=== PATIENT | female | born 1980 | race Caucasian/White ===

== ENCOUNTER 2016-11-18 10:11 | Inpatient (IN) ==
[2016-11-18] MEDS ORDERED: 0.9 % Sodium Chloride 1,000 ML IVC ONE (10:32)
[2016-11-18] MEDS ORDERED: *HR* Promethazine 25 MG/ML VIAL IVP ONE ×2 (10:33→14:31)
--- NOTE | 2016-11-18 10:34 | Emergency Department Note ---
Disposition Clinical Impression: Intractable vomiting Qualifiers: Vomiting type: unspecified Nausea presence: with nausea Qualified Code(s): R11.2 - Nausea with vomiting, unspecified Abdominal pain Qualifiers: Abdominal location: generalized Qualified Code(s): R10.84 - Generalized abdominal pain Disposition: Admitted As Inpatient Condition: Good Referrals: Reji Lockhart MD [Primary Care Provider] - Forms: Work/School Release, ED Satisfaction Letter Abdominal Pain HPI - General Chief Complaint: ED Abdominal Pain Stated Complaint: abd pain Time Seen by Provider: 11/18/16 10:20 Source: patient Mode of arrival: ambulatory Limitations: no limitations Nursing Notes Reviewed: Yes Vital Signs Reviewed: Yes - History of Present Illness Pt Subjective Complaint: abdominal pain Onset (ago): day(s) (2) Consistency: constant Location: diffuse Pain Scale: 7 Quality: cramping Improves with: nothing Worsens with: nothing Context: other (chemotherapy) Associated symptoms: Reports: nausea, vomiting Treatments prior to arrival: prescription analgesics - Related Data Home Medications Medication Instructions Recorded Confirmed Gabapentin [Neurontin] 300 mg PO TID PRN 06/17/16 11/18/16 LORazepam [Ativan] 0.5 mg PO TID PRN 09/23/16 11/18/16 Previous Rx's Medication Instructions Recorded Esomeprazole Magnesium [Nexium] 40 mg PO DAILY #30 capsule. 12/16/15 Ondansetron [Zofran] 8 mg PO Q8HR PRN #60 tablet 06/17/16 Promethazine [Phenergan] 25 mg PO Q6HR PRN #60 tablet 06/17/16 Sennosides/Docusate Sodium [Senna 1 each PO BID PRN #60 tablet 07/16/16 Plus] Haloperidol [Haldol] 5 mg PO HS PRN #30 tablet 08/06/16 Everolimus [Afinitor] 5 mg PO DAILY #30 tablet 09/28/16 Exemestane [Aromasin] 25 mg PO DAILY #30 tablet 09/28/16 Lidocaine/Prilocaine CREAM [Emla] 1 appl TP AD #1 tube 09/28/16 Sorbitol Soln [Sorbitol] 15 - 30 ml PO DAILY PRN #1 solution 09/28/16 Sucralfate [Carafate] 1 gm PO QIDAC #120 tablet 09/28/16 OLANZapine [Zyprexa Zydis] 10 mg PO HS #20 tab.rapdis 10/22/16 FentaNYL PATCH [Duragesic] 50 mcg TD Q72H #10 patch.td72 10/27/16 Magic Mouthwash 10 ml PO TID #900 ml 10/27/16 Oxycodone HCl [Roxicodone 30 MG 30 mg PO Q4HR PRN #150 tab 10/27/16 Immed Release] SUMAtriptan Succinate [Imitrex] 100 mg PO AD PRN #12 tablet 10/27/16 Zolpidem [Ambien] 10 mg PO HS PRN #30 tablet 11/03/16 Allergies Allergy/AdvReac Type Severity Reaction Status Date / Time metoclopramide [From Reglan] Allergy See Verified 10/27/16 10:23 Comments All systems ED: reviewed and negative except as stated. Constitutional: Reports: weakness. Denies: fever, chills Respiratory: Denies: dyspnea Gastrointestinal: Reports: abdominal pain, nausea, vomiting Abdominal Pain PMH - Past Medical History Medical history: Reports: cancer, kidney stones Female Surgical History: Reports: cholecystectomy, hysterectomy, other TECHNICAL SUPPORT SPECIALIST history: Reports: no TECHNICAL SUPPORT SPECIALIST history Psychiatric history: Reports: no psych history - Social History Smoking status: Former smoker Alcohol use: Reports: none Drug use: Reports: none Physical Exam - General Limitations: no limitations General appearance: alert, other (ill but non toxic) - Head Head exam: atraumatic, normocephalic, normal inspection - Eye Eye exam: Present: normal appearance, PERRL, EOMI - Expanded Eye Exam Pupils: Left: reactive - ENT ENT exam: normal exam, normal oropharynx, mucous membranes moist - Expanded ENT Exam External ear exam: Present: normal external inspection Mouth exam: Present: normal external inspection Teeth exam: Present: normal inspection Throat exam: Present: normal inspection - Neck Neck exam: Present: normal inspection, full ROM, trachea midline - Chest Chest inspection: Present: normal inspection, symmetric chest wall rise - Respiratory Respiratory exam: Present: normal lung sounds bilaterally - Cardiovascular Cardiovascular exam: Present: regular rate, normal rhythm, normal heart sounds - Abdominal Exam Abdominal exam: Present: soft, tenderness. Absent: guarding, rebound Abdominal tenderness: Present: diffuse, mild - Extremities Exam Extremities exam: Present: normal inspection, full ROM. Absent: tenderness, pedal edema - Expanded Upper Extremity Exam Shoulder exam: Present: normal inspection, full ROM Arm exam: Present: normal inspection, full ROM Elbow exam: Present: normal inspection, full ROM Forearm/Wrist exam: Present: normal inspection, full ROM Hand exam: Present: normal inspection, full ROM Vascular exam: Normal: capillary refill, radial pulse - Expanded Lower Extremity Exam Hip/Pelvis exam: Present: normal inspection, full ROM Upper leg exam: Present: normal inspection, full ROM Knee exam: Present: normal inspection, full ROM Lower leg exam: Present: normal inspection, full ROM Ankle exam: Present: normal inspection, full ROM Foot/toe exam: Present: normal inspection, full ROM Neurovascular/Tendon exam: Absent: motor deficit, sensory deficit, tendon deficit - Back Exam Back exam: Present: normal inspection, full ROM. Absent: tenderness - Neurological Exam Neurological exam: Present: alert, oriented X3 - Expanded Neurological Exam Patient oriented to: Present: person, place, time Coma Scale Eye Opening: Spontaneous Coma Scale Motor Response: Obeys Commands Coma Scale Verbal Response: Oriented Coma Scale Total: 15 - Psychiatric Psychiatric exam: Present: normal affect, normal mood - Skin Skin exam: Present: warm, dry, intact, normal color Course Vital Signs Temperature 98.5 F 11/18/16 10:12 Pulse Rate 107 11/18/16 10:12 Respiratory Rate 20 11/18/16 10:12 Blood Pressure 104/72 11/18/16 10:12 O2 Sat by Pulse Oximetry 95 11/18/16 10:12 Temperature 98.5 F 11/18/16 10:12 Pulse Rate 61 11/18/16 13:33 Respiratory Rate 12 11/18/16 13:33 Blood Pressure 102/68 11/18/16 13:33 O2 Sat by Pulse Oximetry 97 11/18/16 13:33 Oxygen Delivery Oxygen Delivery Room Air Abdominal Pain - MDM Narrative Medical decision making narrative: dr. aldana accepts - Differential Diagnosis Differential Diagnosis: Likely: abdominal pain non-specific, abdominal pain mimics ectopic , acute appendicitis, constipation, diverticulitis, small bowel obstruction - Medical Records Medical records reviewed: Yes I reviewed the patient's medical records. - Lab Data Lab results reviewed: Yes I reviewed the patient's lab results. Result diagrams: 11/18/16 10:56 11/18/16 10:56 Lab Results 01/11/17 01/11/17 Range/Units 10:56 10:56 WBC 4.1 L (4.3-11.1) K/mcL RBC 4.70 (3.82-4.97) M/mcL Hgb 14.3 (11.5-15.4) g/dL Hct 40.9 (35.3-44.9) % MCV 87.0 (83.0-100.0) fL MCH 30.4 (28.0-33.3) pg MCHC 35.0 (31.6-35.5) g/dL RDW 12.1 (11.5-14.5) % Plt Count 192 (140-400) K/mcL MPV 9.7 (9.4-12.4) fL Immature Gran % 0.2 (0-4) % Seg Neutrophils % 74.1 % Lymphocytes % 18.7 % Monocytes % 6.6 % Eosinophils % 0.2 % Basophils % 0.2 % Neutrophils # 3.0 (1.6-8.9) K/mcL Lymphocytes # 0.8 (0.6-4.6) K/mcL Monocytes # 0.3 (0.0-1.3) K/mcL Eosinophils # 0.0 (0.0-0.6) K/mcL Basophils # 0.0 (0.0-0.2) K/mcL Sodium 138 (136-145) mEq/L Potassium 3.7 (3.5-4.5) mEq/L Chloride 105 (98-109) mEq/L Carbon Dioxide 17 L (19-29) mEq/L BUN 13 (7-20) mg/dL Creatinine 0.76 (0.57-1.11) mg/dL Est GFR ( Amer) > 60 (> 60) Est GFR (Non-Af Amer) > 60 (> 60) BUN/Creatinine Ratio 17 (6-26) Glucose 94 (70-99) mg/dL Calculated Osmolality 286 (280-300) Calcium 9.4 (8.6-10.8) mg/dL Total Bilirubin 0.5 (0.2-1.2) mg/dL Direct Bilirubin 0.2 (0.0-0.5) mg/dL Indirect Bilirubin 0.3 (0.0-1.2) mg/dL AST 37 H (5-34) Units/L ALT 44 (0-55) Units/L Alkaline Phosphatase 121 (38-126) Units/L Serum Total Protein 7.4 (6.0-8.3) g/dL Albumin 3.9 (3.5-5.0) g/dL Globulin 3.5 (2.4-3.5) g/dL Albumin/Globulin Ratio 1.1 (1.1-2.2) Amylase 40 (25-125) Units/L Lipase 29 (8-78) Units/L - Radiology Data Radiology results reviewed: Yes I reviewed the patient's radiology results.
[2016-11-18] MEDS ORDERED: *HR* HYDROmorphone (PF) 1 MG/ML SYRINGE IVP ONE (11:00)
[2016-11-18 11:03] LABS: Basophils % 0.2 %; Eosinophils % 0.2 %; Hematocrit 40.9 % (35.3-44.9); Hemoglobin 14.3 g/dL (11.5-15.4); Immature Granulocytes % 0.2 % (0-4); Lymphocytes # 0.8 K/mcL (0.6-4.6); Lymphocytes % 18.7 %; Mean Corpuscular Hemoglobin 30.4 pg (28.0-33.3); Mean Platelet Volume 9.7 fL (9.4-12.4); Monocytes # 0.3 K/mcL (0.0-1.3); Monocytes % 6.6 %; Platelet Count 192 K/mcL (140-400); Red Cell Distribution Width 12.1 % (11.5-14.5); Segmented Neutrophils % 74.1 %
[2016-11-18 11:19] LABS: Alanine Aminotransferase 44 Units/L (0-55); Albumin 3.9 g/dL (3.5-5.0); Albumin/Globulin Ratio 1.1 (1.1-2.2); Alkaline Phosphatase 121 Units/L (38-126); Amylase 40 Units/L (25-125); Aspartate Amino Transferase 37 Units/L (5-34); BUN/Creatinine Ratio 17 (6-26); Bilirubin,Direct 0.2 mg/dL (0.0-0.5); Bilirubin,Indirect 0.3 mg/dL (0.0-1.2); Bilirubin,Total 0.5 mg/dL (0.2-1.2); Blood Urea Nitrogen 13 mg/dL (7-20); Calcium 9.4 mg/dL (8.6-10.8); Carbon Dioxide 17 mEq/L (19-29); Chloride 105 mEq/L (98-109); Globulin 3.5 g/dL (2.4-3.5); Glucose 94 mg/dL (70-99); Lipase 29 Units/L (8-78); Osmolality,Calculated 286 (280-300); Potassium 3.7 mEq/L (3.5-4.5); Sodium 138 mEq/L (136-145); Total Protein 7.4 g/dL (6.0-8.3); eGFR For African Americans > 60 (> 60); eGFR For Non-African Americans > 60 (> 60)
[2016-11-18] MEDS ORDERED: Ondansetron 4 MG/2 ML VIAL IVP ONE (12:11)
[2016-11-18] MEDS ORDERED: *HR* HYDROmorphone (PF) 1 MG/ML SYRINGE IV ONE (12:50)
[2016-11-18] MEDS ORDERED: *HR* Promethazine 25 MG/ML VIAL IVP PRN (15:39)
[2016-11-18] MEDS ORDERED: Ondansetron 4 MG/2 ML VIAL IVP PRN (15:39)
[2016-11-18] MEDS ORDERED: Naloxone 0.4 MG/ML INJ IVP PRN (15:39)
--- NOTE | 2016-11-18 15:39 | Internal Med History&Physical ---
Date of Encounter: 11/18/16 Time of Encounter: 16:00 Assessment and Plan (1) Abdominal pain Current visit: Yes Status: Acute 1 patient has been experiencing midepigastric radiating to the left upper quadrant pain possibly multifactorial related to chemotherapy possible drug withdrawal or gastritis. We will continue with IV fluids anti-emetics and pain medication 2 we will continue with PPI 3 awaiting urinalysis tox screen and results 4 will make patient NPO and advance diet as tolerated Qualifiers: Abdominal location: epigastric Qualified Code(s): R10.13 - Epigastric pain (2) GERD (gastroesophageal reflux disease) Current visit: No Status: Chronic 1 we will continue with PPI Qualifiers: Esophagitis presence: with esophagitis Qualified Code(s): K21.0 - Gastro- esophageal reflux disease with esophagitis (3) Metastatic breast cancer Current visit: No Status: Chronic 1 we will continue with oral chemotherapy once patient's tolerating oral intake. Continue with outpatient follow-up with oncology and consult as needed (4) DVT prophylaxis Current visit: Yes Status: Acute 1 Place on heparin subcutaneous Internal Medicine - H&P: HPI Chief complaint: ABD pain Admitted From: Home Plans for Post Hospital Care: Home History of present illness: Ms. Donahue is a 36 year old female with metastatic breast cancer characterized by bony lesions and central nervous system lesions liver lesions followed by Dr. Monsivais. She has receive hormone therapy radiation therapy bilateral mastectomy and is presently on oral chemotherapy. Her last visit with Dr. Chaves to smoke approximately 1 month ago. She states that she has been doing well since that last visit. She had been tolerating her oral chemotherapy, however on Wednesday she began to experience nausea and vomiting abdominal pain. The pain as midepigastric radiating to left side she describes the pain as burning and is aggravated with food and vomiting and relieved with pain medication. She is taking Roxicodone as well as fentanyl patches for pain however she states she is out of her fentanyl patches and has not been using them from her past 2 weeks. She states she has been vomiting 4-5 times a day since Wednesday. She has been unable to tolerate food or liquids and has not taken her medication for the past 2 days. She denies any hemataemesis , diarrhea hematochezia. She was seen by GI in June for similar symptoms and underwent an endoscopy as well as colonoscopy which revealed diffuse inflammation she is placed on PPI twice a day. She presented to the ER for further workup and evaluation. According to ED notes CT scan revealed no acute abnormalities of the abdomen or pelvis. Her lab work is unremarkable except for noted bicarbonate 17. She is afebrile blood pressure was upper 90s systolic. She was given IV fluids which did improve to 100. She was given IV fluids and pain medication and antiemetics. She has been admitted for further workup and evaluation. Presently the patient states that her pain is improved 7/10 and is tolerable she has not had any more emesis since arriving to the ER . She denies any chest pain shortness of breath diarrhea back pain. Symptoms headache shortness of breath cough or fever At present time she appears to be hemodynamically stable. I reviewed the case with Dr Garcia who agrees with the plan . Past Med Surg Social Fam HX - Past Medical History Medical history: cancer, kidney stones Psychiatric history: no psych history - Past Surgical History Surgical History: breast surgery, cancer surgery, cholecystectomy, hysterectomy - Social History Smoking Status: Former smoker Smokeless Tobacco Status: No Alcohol use: none Drug use: none - Family History Mother Adopted: No Living Status: Still Living Hx Family Cardiac Disorders: Yes Hx Family Endocrine Disorder: Yes Internal Medicine - H&P: Meds RX: Esomeprazole Magnesium [Nexium] 40 mg PO DAILY #30 capsule. 12/16/15 [Rx] RX: Gabapentin [Neurontin] 300 mg PO TID PRN 06/17/16 [History] RX: Ondansetron [Zofran] 8 mg PO Q8HR PRN #60 tablet 06/17/16 [Rx] RX: Promethazine [Phenergan] 25 mg PO Q6HR PRN #60 tablet 06/17/16 [Rx] RX: Sennosides/Docusate Sodium [Senna Plus] 1 each PO BID PRN #60 tablet [Rx] RX: Haloperidol [Haldol] 5 mg PO HS PRN #30 tablet 08/06/16 [Rx] RX: LORazepam [Ativan] 0.5 mg PO TID PRN 09/23/16 [History] RX: Everolimus [Afinitor] 5 mg PO DAILY #30 tablet 09/28/16 [Rx] RX: Exemestane [Aromasin] 25 mg PO DAILY #30 tablet 09/28/16 [Rx] RX: Lidocaine/Prilocaine CREAM [Emla] 1 appl TP AD #1 tube 09/28/16 [Rx] RX: Sorbitol Soln [Sorbitol] 15 - 30 ml PO DAILY PRN #1 solution 09/28/16 [Rx] RX: Sucralfate [Carafate] 1 gm PO QIDAC #120 tablet 09/28/16 [Rx] RX: OLANZapine [Zyprexa Zydis] 10 mg PO HS #20 tab.rapdis 10/22/16 [Rx] RX: FentaNYL PATCH [Duragesic] 50 mcg TD Q72H #10 patch.td72 10/27/16 [Rx] RX: Magic Mouthwash 10 ml PO TID #900 ml 10/27/16 [Rx] RX: Oxycodone HCl [Roxicodone 30 MG Immed Release] 30 mg PO Q4HR PRN #150 tab [Rx] RX: SUMAtriptan Succinate [Imitrex] 100 mg PO AD PRN #12 tablet 10/27/16 [Rx] Zolpidem [Ambien] 10 mg PO HS PRN #30 tablet 11/03/16 [Rx] Allergies metoclopramide [From Reglan] Allergy (Verified 10/27/16 10:23) See Comments All Systems PM: A 10-system review of systems was performed and is negative for pertinent findings except as documented above in the HPI. - Constitutional Constitutional: anorexia, chills, weakness - Cardiovascular Cardiovascular ROS IM: no chest pain, no diaphoresis, no dyspnea, no lightheadedness, no palpitations, no syncope - Respiratory Respiratory: no cough, no dyspnea, no wheezing, no excessive phlegm production - Gastrointestinal Gastrointestinal: abdominal pain, nausea, vomiting - Integumentary Integumentary IM: no rash, no unusual bruising - Neurological Neurological ROS: no confusion, no convulsions, no focal weakness, no numbness, no tingling, no tremor(s) - Constitutional Vitals: Temp Pulse Resp BP Pulse Ox 98.5 F 61 12 102/68 97 11/18/16 10:12 11/18/16 13:33 11/18/16 13:33 11/18/16 13:33 11/18/16 13:33 General appearance: Present: A&O X 3, pleasant - Head Head exam: Present: atraumatic, normocephalic - Respiratory Respiratory exam: Present: CTAB. Absent: accessory muscle use, rales, rhonchi, wheezes - Cardiovascular Cardiovascular exam: Present: RRR, +S1, +S2. Absent: diastolic murmur, gallop, rubs, systolic murmur - GI/Abdominal GI/Abdominal exam: Present: normal bowel sounds, soft, no peritoneal signs. Absent: distended, tenderness - Extremities Exam Extremities exam: Present: warm, radial pulses palpable and symetrical. Absent : calf tenderness, cyanotic, pedal edema - Neurological Exam Neurological exam: Present: CN II-XII intact, oriented X3, no focal deficits. Absent: pronater drift, facial droop, speech deficit - Skin Skin exam: Present: dry, intact Internal Med - H&P Results - Labs CBC & Chem 7: 11/18/16 10:56 11/18/16 10:56 - Diagnostic Studies CT scan - abdomen Additional comments: Per radiology read no acute abnormalities of abdomen or pelvis
[2016-11-18] MEDS ORDERED: Sennosides/Docusate Sodium TABLET PO PRN (16:17)
[2016-11-18] MEDS ORDERED: *HR* LORazepam 0.5 MG TABLET PO PRN (16:17)
[2016-11-18] MEDS: Sucralfate 1 GM TABLET PO SCH ×2 (17:27→22:13)
[2016-11-18] MEDS: *HR* FentaNYL PATCH 50 MCG PATCH TD SCH (17:27)
[2016-11-18] MEDS: *HR* Heparin 5,000 UNIT/ML VIAL SQ SCH (17:27)
[2016-11-18] MEDS: 0.9 % Sodium Chloride 1,000 ML IVC SCH (17:28)
[2016-11-18] MEDS: Magic Mouthwash 10 ML UD Cup PO SCH (21:21)
[2016-11-18] MEDS: *HR* HYDROmorphone (PF) 1 MG/ML SYRINGE IVP PRN (21:22)
[2016-11-18] MEDS: OLANZapine 10 MG TAB.RAPDIS PO SCH (21:22)
[2016-11-19 00:22] LABS: Bilirubin,Urine Moderate (Negative); Blood,Urine Negative (Negative); Clarity,Urine Clear (Clear); Color,Urine Yellow (Yellow); Glucose,Urine (UA) Normal (Normal); Ketones,Urine 80 mg/dL (Negative); Leukocyte Esterase,Urine Moderate (Negative); Nitrite,Urine Negative (Negative); Protein,Urine Negative (Neg-Trace); Specific Gravity,Urine 1.021 (1.010-1.025); Urobilinogen,Urine Normal (Normal)
[2016-11-19 00:24] LABS: Bacteria,Urine None Seen per hpf (None-Few); Hyaline Casts,Urine None Seen per lpf (None-Few); RBC,Urine 0-3 per hpf (0-3); Squamous Epithelial Cell,Urine Many per lpf (None-Few)
[2016-11-19 00:30] LABS: Amphetamine Screen,Urine Negative ng/mL (Cutoff=1000); Barbiturate Screen,Urine Negative ng/mL (Cutoff=200); Benzodiazepines Screen,Urine Negative ng/mL (Cutoff=200); Cannabinoid Screen,Urine Negative ng/mL (Cutoff = 50); Cocaine Screen,Urine Negative ng/mL (Cutoff= 300); Opiate Screen,Urine Positive ng/mL (Cutoff=300); Phencyclidine Screen,Urine Negative ng/mL (Cutoff=25)
[2016-11-19 03:35] LABS: Basophils % 0.5 %; Eosinophils # 0.1 K/mcL (0.0-0.6); Eosinophils % 2.2 %; Hematocrit 36.3 % (35.3-44.9); Immature Granulocytes % 0.5 % (0-4); Lymphocytes # 1.7 K/mcL (0.6-4.6); Mean Corpuscular HGB Conc 34.2 g/dL (31.6-35.5); Mean Corpuscular Hemoglobin 30.5 pg (28.0-33.3); Mean Corpuscular Volume 89.2 fL (83.0-100.0); Mean Platelet Volume 10.4 fL (9.4-12.4); Monocytes # 0.5 K/mcL (0.0-1.3); Monocytes % 12.6 %; Neutrophils # 1.4 K/mcL (1.6-8.9); Platelet Count 168 K/mcL (140-400); Red Blood Count 4.07 M/mcL (3.82-4.97); Red Cell Distribution Width 12.4 % (11.5-14.5); Segmented Neutrophils % 38.2 %
[2016-11-19] MEDS: *HR* HYDROmorphone (PF) 1 MG/ML SYRINGE IVP PRN ×3 (03:37→11:54)
[2016-11-19 03:52] LABS: BUN/Creatinine Ratio 13 (6-26); Blood Urea Nitrogen 9 mg/dL (7-20); Calcium 8.4 mg/dL (8.6-10.8); Carbon Dioxide 15 mEq/L (19-29); Chloride 112 mEq/L (98-109); Glucose 68 mg/dL (70-99); Osmolality,Calculated 285 (280-300); Sodium 139 mEq/L (136-145); eGFR For African Americans > 60 (> 60); eGFR For Non-African Americans > 60 (> 60)
[2016-11-19 03:54] LABS: Potassium 4.2 mEq/L (3.5-4.5)
[2016-11-19 04:16] LABS: Hemoglobin 12.4 g/dL (11.5-15.4)
[2016-11-19 04:17] LABS: Platelet Estimate Normal (Normal)
[2016-11-19] MEDS: Ondansetron 4 MG/2 ML VIAL IVP PRN ×4 (04:46→22:30)
[2016-11-19] MEDS: *HR* Heparin 5,000 UNIT/ML VIAL SQ SCH ×2 (06:24→17:28)
--- NOTE | 2016-11-19 08:06 | Oncology Inp Consult Note ---
Date of Encounter: 11/19/16 Time of Encounter: 08:01 - Data of Consult Patient: known to practice within the last 3 years Consult date: 11/19/16 Requesting Physician: Katie Isaacs Primary Care Provider: Reji Acuna - Consult Narrative Reason for consult: Metastatic breast cancer History of present illness: Ms. Donahue is a 36 year old female patient of the cancer Center who has established oncologic care for metastatic breast cancer. Has been followed by Dr. Acuna who has recently left the health system. She will be relocating her care to continue following with Dr. Acuna at [facility] and already has an appointment for 11/25/16. I have summarized patient's heme/onc background below based on Dr. Acuna's most recent office report. She was found to have a large breast mass in her right breast in late May 2013. Diagnostic mammogram on June 08, 2013 noted a suspicious mass in her right breast which would undergo core needle biopsy. This would return as invasive carcinoma which is ER strongly positive, MD weakly positive, HER-2 negative. Staging workup was negative for metastatic disease. She received AC chemotherapy with neoadjuvant intent on June 20 complicated by severe rash and scleritis. She was to be given dexamethasone eyedrops and given her severe reaction to her chemotherapy she would be changed to epirubicin/ cyclophosphamide and she would complete a total of 4 doses of anthracycline and cyclophosphamide. Taxol initiated on 09/18/2013 and completed on 11/27/13 with 11 of 12 planned doses given. Halted for increasing neuropathy and weakness. She would have bilateral mastectomy with immediate reconstruction on 01/05/14 and pathology showed tumor size of 3.1cm with 3/16 LN removed + for IDC. Margins were clear. She has initiated radiation and would develop progressive headaches. MRI brain on 04/28 would show 4 new metastatic lesions in the brain. She would receive SBRT to these lesions. Last week she would present with worsening left sided headache despite imitrex and ibuproen/compazine/zofran. Repeat MRI showed good response in these lesions and no new intracranial findings. We placed her on Topamax 50mg daily but would feel foggy. Her headaches ultimately improved and we would wean her off this medication. 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 She would have SBRT to these new lesions. We re-referred her to [facility] and she had SBRT to her C spine and we performed IMRT to her right hip. She has also started faslodex and is here for injection. She is not currently on xgeva as she had a severe allergic reaction to this. More recently MRI of her brain on 02/18/2016 demonstrated increased size of her brain lesions as well as vasogenic edema. She would also have a PET /CT on 03/04/2016 which demonstrated increased metabolic activity in a solitary lesion in her liver but no other signs of metastatic disease elsewhere. She would be started on dexamethasone 1 tablet twice daily and referred to [facility] for consideration of radiation necrosis versus true tumor progression. After reviewed, it was decided to refer the patient to neurosurgery for brain biopsy to confirm whether she was having radiation necrosis or true tumor progression. She has had a stereotactic biopsy that demonstrated necrosis rather than tumor progression. She has been started on Palbociclib for progression in the liver in addition to her Faslodex on 2015. She has been approved for Avastin for radiation necrosis and received 3 cycles. More recently she has been hospitalized with severe recurrent abdominal pain and mild diarrhea. CT scan was rather unrevealing only consistent with some mild colitis. She was stabilized with fentanyl patches. Her abdominal pain continued well beyond discontinuation of Palbociclib and it was hypothesized that this was unrelated. She would restart palbociclib at 75mg on 09/05/2016. Unfortunately, several weeks into her treatment she developed recurrent severe abdominal pain and refractory nausea. She was hospitalized and improved with supportive management. She is here for follow- up and further recommendations. Patient is currently hospitalized for intractable abdominal pain. Oncology is consulted re: possible contusion from underlying breast cancer to patient's abdominal pain complaints. This appears to be an ongoing problem for the patient with her abdomen CT from a month ago raising concern about colitis. Due to concern about adverse drug reaction, palbociclib which she had been taken at the relatively low dose was stopped and she is currently on exemestane plus everolimus combination for her metastatic breast cancer. She's been on since treatment for about a month. Patient was seen and examined at bedside today. Chart reviewed for details of ongoing care by hospital day which is much appreciated. Her pain is mid epigastric in location and has been attributed to gastritis opiate withdrawal. She is on fentanyl patch in addition to oxycodone although she reports increasing episodes of breakthrough pain recently. She reports regular bowel movements and her current bowel regimen. She still having some breakthrough pain with current regimen of pain medication. Rest of past medical, surgical, family, social history detailed below and verified with patient today. Review of systems: 12 point review of systems performed with patient and positive findings noted in history of present illness. All other systems are negative: Physical exam: Vital Signs Temp 98.1 F 11/19/16 07:53 Pulse 60 11/19/16 07:53 Resp 14 11/19/16 07:53 BP 97/61 11/19/16 07:53 Pulse Ox 95 11/19/16 07:53 GENERAL: * Alert and oriented, [default value] appearing. * Mental Status: Affect appropriate for circumstances HEENT: * Sclerae anicteric. No mucositis or thrush. * No other oral or pharyngeal lesions or erythema. Skin: * No rashes or petechiae. * No evidence of skin malignancy Lymph nodes: * No cervical, supraclavicular, axillary, or inguinal adenopathy. Lungs: * Clear to auscultation bilaterally. * Clear to percussion bilaterally. Cardiovascular: * Regular rate and rhythm. * No gallops, murmurs, or rubs. Abdomen: * Soft, tender epigastrium/upper abdomen. * No organomegaly or masses palpable. Extremities: * No edema. No calf swelling or tenderness. * No joint deformity. Neurologic: * Alert, * normal gait; * no focal weakness or sensory abnormalities. Results: Laboratory Last Values WBC 3.7 K/mcL (4.3-11.1) L 11/19/16 03:18 RBC 4.07 M/mcL (3.82-4.97) 11/19/16 03:18 Hgb 12.4 g/dL (11.5-15.4) D 11/19/16 03:18 Hct 36.3 % (35.3-44.9) 11/19/16 03:18 MCV 89.2 fL (83.0-100.0) 11/19/16 03:18 MCH 30.5 pg (28.0-33.3) 11/19/16 03:18 MCHC 34.2 g/dL (31.6-35.5) 11/19/16 03:18 RDW 12.4 % (11.5-14.5) 11/19/16 03:18 Plt Count 168 K/mcL (140-400) 11/19/16 03:18 MPV 10.4 fL (9.4-12.4) 11/19/16 03:18 Immature Gran % 0.5 % (0-4) 11/19/16 03:18 Seg Neutrophils % 38.2 % 11/19/16 03:18 Lymphocytes % 46.0 % 11/19/16 03:18 Monocytes % 12.6 % 11/19/16 03:18 Eosinophils % 2.2 % 11/19/16 03:18 Basophils % 0.5 % 11/19/16 03:18 Neutrophils # 1.4 K/mcL (1.6-8.9) L 11/19/16 03:18 Lymphocytes # 1.7 K/mcL (0.6-4.6) 11/19/16 03:18 Monocytes # 0.5 K/mcL (0.0-1.3) 11/19/16 03:18 Eosinophils # 0.1 K/mcL (0.0-0.6) 11/19/16 03:18 Basophils # 0.0 K/mcL (0.0-0.2) 11/19/16 03:18 Platelet Estimate Normal (Normal) 11/19/16 03:18 Sodium 139 mEq/L (136-145) 11/19/16 03:18 Potassium 4.2 mEq/L (3.5-4.5) 11/19/16 03:18 Chloride 112 mEq/L (98-109) H 11/19/16 03:18 Carbon Dioxide 15 mEq/L (19-29) L 11/19/16 03:18 BUN 9 mg/dL (7-20) 11/19/16 03:18 Creatinine 0.69 mg/dL (0.57-1.11) 11/19/16 03:18 Est GFR ( Amer) > 60 (> 60) 11/19/16 03:18 Est GFR (Non-Af Amer) > 60 (> 60) 11/19/16 03:18 BUN/Creatinine Ratio 13 (6-26) 11/19/16 03:18 Glucose 68 mg/dL (70-99) L 11/19/16 03:18 Calculated Osmolality 285 (280-300) 11/19/16 03:18 Calcium 8.4 mg/dL (8.6-10.8) L 11/19/16 03:18 Total Bilirubin 0.5 mg/dL (0.2-1.2) 11/18/16 10:56 Direct Bilirubin 0.2 mg/dL (0.0-0.5) 11/18/16 10:56 Indirect Bilirubin 0.3 mg/dL (0.0-1.2) 11/18/16 10:56 AST 37 Units/L (5-34) H 11/18/16 10:56 ALT 44 Units/L (0-55) 11/18/16 10:56 Alkaline Phosphatase 121 Units/L (38-126) 11/18/16 10:56 Serum Total Protein 7.4 g/dL (6.0-8.3) 11/18/16 10:56 Albumin 3.9 g/dL (3.5-5.0) 11/18/16 10:56 Globulin 3.5 g/dL (2.4-3.5) 11/18/16 10:56 Albumin/Globulin Ratio 1.1 (1.1-2.2) 11/18/16 10:56 Amylase 40 Units/L (25-125) 11/18/16 10:56 Lipase 29 Units/L (8-78) 11/18/16 10:56 Urine Color Yellow (Yellow) 11/18/16 23:50 Urine Clarity Clear (Clear) 11/18/16 23:50 Urine pH 6.0 pH Units (5.0-8.0) 11/18/16 23:50 Ur Specific [place] 1.021 (1.010-1.025) 11/18/16 23:50 Urine Protein Negative mg/dL (Neg-Trace) 11/18/16 23:50 Urine Glucose (UA) Normal mg/dL (Normal) 11/18/16 23:50 Urine Ketones 80 mg/dL (Negative) H 11/18/16 23:50 Urine Blood Negative (Negative) 11/18/16 23:50 Urine Nitrite Negative (Negative) 11/18/16 23:50 Urine Bilirubin Moderate (Negative) H 11/18/16 23:50 Urine Urobilinogen Normal mg/dL (Normal) 11/18/16 23:50 Ur Leukocyte Esterase Moderate (Negative) H 11/18/16 23:50 Urine Microscopic RBC 0-3 per hpf (0-3) 11/18/16 23:50 Urine Microscopic WBC 5-15 per hpf (0-3) H 11/18/16 23:50 Ur Squamous Epith Cells Many per lpf (None-Few) H 11/18/16 23:50 Urine Bacteria None Seen per hpf (None-Few) 11/18/16 23:50 Hyaline Casts None Seen per lpf (None-Few) 11/18/16 23:50 Ur Culture Indicated? YES (NO) A 11/18/16 23:50 Urine Test Negative (Negative) 11/18/16 23:46 Urine Opiates Screen Positive ng/mL (Bwbdcz=636) H 11/18/16 23:21 Ur Barbiturates Screen Negative ng/mL (Rvpclo=334) 11/18/16 23:21 Ur Phencyclidine Scrn Negative ng/mL (Cutoff=25) 11/18/16 23:21 Ur Amphetamines Screen Negative ng/mL (Dreqgt=9663) 11/18/16 23:21 U Benzodiazepines Scrn Negative ng/mL ([place]=077) 11/18/16 23:21 Urine Cocaine Screen Negative ng/mL (Cutoff= 300) 11/18/16 23:21 U Marijuana (THC) Screen Negative ng/mL (Cutoff = 50) 11/18/16 23:21 Radiographic studies: I personally reviewed and interpreted patient's most recent imaging studies dated [default value]. I discussed the findings with the patient today. Abdomen/Pelvis CT 11/18/16 12:50 IMPRESSION: No acute abnormality of the abdomen or pelvis. D/ / Mihir Martines MD / Mihir Martines MD Interpreting Provider: Mihir Martines MD Impression/recommendations: Intractable abdominal pain: This is an ongoing problem over the last month or so. There was previous concern about contribution from palbociclib which was taken for her breast cancer but pain has persisted despite stopping palbociclib is switching to exemestane. I'm not sure at this point it has been explained on the basis of her breast cancer or ongoing therapy. Her recent scans have been unrevealing as far as involvement with breast cancer. Description of pattern of abdominal pain does not be typical description for ischemic bowel disease but I think is reasonable to obtain a GI consult. She previously is remarkable during hospitalization in June for similar symptoms. Her abdominal pain was previously controlled with her pain regimen and the other possibility is that she developed intolerance to her current regimen and may need adjustment of her pain medication after completing workup for organic cause of her pain. Metastatic breast cancer: Breast cancer appears to be reasonably well-controlled her current regimen by Dr. Acuna. She'll be relocating her oncologic care to [facility] along with Dr. Acuna and already has an appointment 11/25/16. We'll follow the patient along side you during this hospitalization but please do not hesitate to call regarding interval hematologic questions as they arise. Thank you for your excellent ongoing care for allowing us to see her while in- house. This report was created using voice recognition software and may contain errors. It was signed but not edited to expedite communication. Past Med Surg Social Fam HX - Past Medical History Medical history: cancer, kidney stones Psychiatric history: no psych history - Past Surgical History Surgical History: breast surgery, cancer surgery, cholecystectomy, hysterectomy - Social History Smoking Status: Former smoker Smokeless Tobacco Status: No Alcohol use: none Drug use: none - Family History Mother Adopted: No Living Status: Still Living Hx Family Cardiac Disorders: Yes Hx Family Endocrine Disorder: Yes (DM) Medications and Allergies Esomeprazole Magnesium [Nexium] 40 mg PO DAILY #30 capsule. 12/16/15 [Rx] Gabapentin [Neurontin] 300 mg PO TID PRN 06/17/16 [History] Ondansetron [Zofran] 8 mg PO Q8HR PRN #60 tablet 06/17/16 [Rx] Promethazine [Phenergan] 25 mg PO Q6HR PRN #60 tablet 06/17/16 [Rx] Sennosides/Docusate Sodium [Senna Plus] 1 each PO BID PRN #60 tablet 07/16/16 [ Rx] Haloperidol [Haldol] 5 mg PO HS PRN #30 tablet 08/06/16 [Rx] LORazepam [Ativan] 0.5 mg PO TID PRN 09/23/16 [History] Everolimus [Afinitor] 5 mg PO DAILY #30 tablet 09/28/16 [Rx] Exemestane [Aromasin] 25 mg PO DAILY #30 tablet 09/28/16 [Rx] Lidocaine/Prilocaine CREAM [Emla] 1 appl TP AD #1 tube 09/28/16 [Rx] Sorbitol Soln [Sorbitol] 15 - 30 ml PO DAILY PRN #1 solution 09/28/16 [Rx] Sucralfate [Carafate] 1 gm PO QIDAC #120 tablet 09/28/16 [Rx] OLANZapine [Zyprexa Zydis] 10 mg PO HS #20 tab.rapdis 10/22/16 [Rx] FentaNYL PATCH [Duragesic] 50 mcg TD Q72H #10 patch.td72 10/27/16 [Rx] Magic Mouthwash 10 ml PO TID #900 ml 10/27/16 [Rx] Oxycodone HCl [Roxicodone 30 MG Immed Release] 30 mg PO Q4HR PRN #150 tab [Rx] SUMAtriptan Succinate [Imitrex] 100 mg PO AD PRN #12 tablet 10/27/16 [Rx] Zolpidem [Ambien] 10 mg PO HS PRN #30 tablet 11/03/16 [Rx] Allergies metoclopramide [From Reglan] Allergy (Verified 10/27/16 10:23) See Comments Oncology - Exam - Constitutional Vitals: Temp Pulse Resp BP Pulse Ox 98.1 F 60 14 97/61 95 11/19/16 07:53 11/19/16 07:53 11/19/16 07:53 11/19/16 07:53 11/19/16 07:53 Oncology - Results - Labs Labs: Short CBC 11/19/16 Range/Units 03:18 WBC 3.7 L (4.3-11.1) K/mcL Hgb 12.4 D (11.5-15.4) g/dL Hct 36.3 (35.3-44.9) % Plt Count 168 (140-400) K/mcL Neutrophils # 1.4 L (1.6-8.9) K/mcL BMP 11/19/16 03:18 Sodium 139 Potassium 4.2 Chloride 112 H Carbon Dioxide 15 L BUN 9 Creatinine 0.69 Glucose 68 L Calcium 8.4 L Urine 11/18/16 Range/Units 23:50 Urine Color Yellow (Yellow) Urine Clarity Clear (Clear) Urine pH 6.0 (5.0-8.0) pH Units Ur Specific [place] 1.021 (1.010-1.025) Urine Protein Negative (Neg-Trace) mg/dL Urine Glucose (UA) Normal (Normal) mg/dL Consult Discharge Plan - Plan Referrals: Reji Acuna MD [Primary Care Provider] -
[2016-11-19] MEDS: Magic Mouthwash 10 ML UD Cup PO SCH ×3 (08:07→19:35)
[2016-11-19] MEDS: Sucralfate 1 GM TABLET PO SCH ×4 (08:07→22:20)
[2016-11-19] MEDS: Pantoprazole 40 MG VIAL IVP SCH (08:07)
[2016-11-19] MEDS: 0.9 % Sodium Chloride 1,000 ML IVC SCH ×2 (08:08→17:28)
[2016-11-19] MEDS: (Exemestane [Aromasin] 25 MG) PO SCH (08:15)
[2016-11-19] MEDS: EVEROLIMUS 5 MG PO SCH (08:15)
[2016-11-19] MEDS ORDERED: NON-FORMULARY MEDICATION 1 EACH EACH (Esomeprazole Magnesium [Nexium] 40 MG) PO SCH (09:00)
[2016-11-19] MEDS: *HR* HYDROmorphone 20 MG/20 ML PCA IVC PRN (15:52)
--- NOTE | 2016-11-19 15:55 | Internal Med Progress Note ---
Date of Encounter: 11/19/16 Time of Encounter: 14:30 - Assessment and plan (1) Generalized abdominal pain Current Visit: No Status: Chronic Assessment and plan: Abdominal CT negative for acute processes. Patient is well known to this provider and her pain appears consistent with her normal chronic pain. Patient has a tendency to not take her pain medication as prescribed once she is out of the hospital. Pain is severe and unrelenting, we will initiate Dilaudid PIT CLERK pump. Continue to utilize Zofran, Phenergan, and Haldol for intractable nausea and vomiting. She states she would like to try a liquid diet at this time. Continue supportive care. ITS Impressions Abdomen/Pelvis CT 11/18/16 12:50 IMPRESSION: No acute abnormality of the abdomen or pelvis. D/ / Mihir Martines MD / Mihir Martines MD Interpreting Provider: Mihir Martines MD (2) Intractable nausea and vomiting Current Visit: No Status: Acute Qualifiers: Vomiting type: unspecified Qualified Code(s): R11.2 - Nausea with vomiting , unspecified (3) Cancer related pain Current Visit: No Status: Chronic (4) DVT prophylaxis Current Visit: Yes Status: Acute Assessment and plan: Subcutaneous heparin (5) Constipation Current Visit: No Status: Chronic Assessment and plan: Home senna plus continued, will continue to monitor closely given increase in pain medication Qualifiers: Constipation type: slow transit constipation Qualified Code(s): K59.01 - Slow transit constipation (6) GERD (gastroesophageal reflux disease) Current Visit: No Status: Chronic Assessment and plan: Patient denies current burning, continue Carafate and Protonix Qualifiers: Esophagitis presence: with esophagitis Qualified Code(s): K21.0 - Gastro- esophageal reflux disease with esophagitis (7) Metastatic breast cancer Current Visit: No Status: Chronic (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 On examination, patient sitting upright in bed. Her room is dark and quiet. She is complaining of severe pain across her upper and left sided abdomen. She is also endorsing severe nausea. - Constitutional Vitals: Temp Pulse Resp BP Pulse Ox 97.9 F 67 14 99/68 95 11/19/16 15:17 11/19/16 15:17 11/19/16 15:17 11/19/16 15:17 11/19/16 15:17 General appearance: Present: A&O X 3, pleasant, no acute distress, answers questions appropriately - Head Head exam: Present: atraumatic, normocephalic - Eye Eye exam: Present: PERRL, conjuntiva pink, sclera anicteric Pupils: Present: PERRL - Neck Neck exam general surgery: Present: supple, trachea midline. Absent: lymphadenopathy - Respiratory Respiratory exam: Present: decreased breath sounds. Absent: accessory muscle use, rales, respiratory distress, rhonchi, wheezes - Cardiovascular Cardiovascular exam: Present: RRR, +S1, +S2. Absent: diastolic murmur, gallop, rubs, systolic murmur - GI/Abdominal GI/Abdominal exam: Present: normal bowel sounds, soft, tenderness, no peritoneal signs. Absent: distended - Extremities Exam Extremities exam: Present: warm, radial pulses palpable and symetrical. Absent : calf tenderness, cyanotic, pedal edema - Neurological Exam Neurological exam: Present: alert, CN II-XII intact, oriented X3, no focal deficits, strengths equal and symetr throughout. Absent: pronater drift, facial droop, speech deficit - Skin Skin exam: Present: dry, intact, pallor, warm Internal Medicine: Result - Labs CBC & Chem 7: 11/19/16 03:18 11/19/16 03:18 Labs: Short CBC 11/19/16 Range/Units 03:18 WBC 3.7 L (4.3-11.1) K/mcL Hgb 12.4 D (11.5-15.4) g/dL Hct 36.3 (35.3-44.9) % Plt Count 168 (140-400) K/mcL Neutrophils # 1.4 L (1.6-8.9) K/mcL BMP 11/19/16 03:18 Sodium 139 Potassium 4.2 Chloride 112 H Carbon Dioxide 15 L BUN 9 Creatinine 0.69 Glucose 68 L Calcium 8.4 L Urine 11/18/16 Range/Units 23:50 Urine Color Yellow (Yellow) Urine Clarity Clear (Clear) Urine pH 6.0 (5.0-8.0) pH Units Ur Specific [place] 1.021 (1.010-1.025) Urine Protein Negative (Neg-Trace) mg/dL Urine Glucose (UA) Normal (Normal) mg/dL Consult Discharge Plan - Plan Referrals: Reji Lockhart MD [Primary Care Provider] -
[2016-11-19] MEDS: OLANZapine 10 MG TAB.RAPDIS PO SCH (19:38)
[2016-11-19] MEDS: *HR* Promethazine 25 MG/ML VIAL IVP PRN (19:38)
[2016-11-20] MEDS: Ondansetron 4 MG/2 ML VIAL IVP PRN (02:33)
[2016-11-20] MEDS: *HR* HYDROmorphone 20 MG/20 ML PCA IVC PRN ×2 (02:42→16:45)
[2016-11-20] MEDS: *HR* Heparin 5,000 UNIT/ML VIAL SQ SCH ×2 (06:08→16:34)
[2016-11-20] MEDS: Pantoprazole 40 MG VIAL IVP SCH (07:57)
[2016-11-20] MEDS: *HR* Promethazine 25 MG/ML VIAL IVP PRN ×3 (07:57→20:55)
[2016-11-20] MEDS: EVEROLIMUS 5 MG PO SCH (07:58)
[2016-11-20] MEDS: (Exemestane [Aromasin] 25 MG) PO SCH (07:58)
[2016-11-20] MEDS: Sucralfate 1 GM TABLET PO SCH ×4 (07:58→20:56)
[2016-11-20] MEDS: Magic Mouthwash 10 ML UD Cup PO SCH ×3 (07:58→20:56)
--- NOTE | 2016-11-20 14:47 | Internal Med Progress Note ---
Date of Encounter: 11/20/16 Time of Encounter: 10:30 - Assessment and plan (1) Generalized abdominal pain Current Visit: No Status: Chronic Assessment and plan: Continue Dilaudid SENIOR LICENSING MANAGER pump and wean to by mouth medications as she tolerates. She is currently tolerating full liquid diet, advance as she tolerates. No acute findings noted on abdominal CT. 11/19/[address] negative for acute processes. Patient is well known to this provider and her pain appears consistent with her normal chronic pain. Patient has a tendency to not take her pain medication as prescribed once she is out of the hospital. Pain is severe and unrelenting, we will initiate Dilaudid SENIOR LICENSING MANAGER pump. Continue to utilize Zofran, Phenergan, and Haldol for intractable nausea and vomiting. She states she would like to try a liquid diet at this time. Continue supportive care. ITS Impressions Abdomen/Pelvis CT 11/18/16 12:50 IMPRESSION: No acute abnormality of the abdomen or pelvis. D/ / Mihir Martines MD / Mihir Martines MD Interpreting Provider: Mihir Martines MD (2) Intractable nausea and vomiting Current Visit: No Status: Resolved Qualifiers: Vomiting type: unspecified Qualified Code(s): R11.2 - Nausea with vomiting , unspecified (3) Cancer related pain Current Visit: No Status: Chronic Assessment and plan: Continue current pain management, will continue her home medications. Of note, patient can receive pain and nausea medications in the setting of mild hypotension. (4) DVT prophylaxis Current Visit: Yes Status: Acute Assessment and plan: Subcutaneous heparin (5) Constipation Current Visit: No Status: Chronic Assessment and plan: Home senna plus continued, will continue to monitor closely given increase in pain medication Qualifiers: Constipation type: slow transit constipation Qualified Code(s): K59.01 - Slow transit constipation (6) GERD (gastroesophageal reflux disease) Current Visit: No Status: Chronic Assessment and plan: Patient denies current burning, continue Carafate and Protonix Qualifiers: Esophagitis presence: with esophagitis Qualified Code(s): K21.0 - Gastro- esophageal reflux disease with esophagitis (7) Metastatic breast cancer Current Visit: No Status: Chronic (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 Patient stating that she takes Ativan 3 times a day home - Subjective Interval history: Patient seen and examined. On examination, patient sitting upright in bed. Patient appears much more comfortable and much less pale than yesterday. She states her pain is better controlled though she still continues to endorse abdominal pain as well as mild nausea. She is also complaining of itching and requesting her Benadryl medication. She states she is tolerating full liquid diet well. - Constitutional Vitals: Temp Pulse Resp BP Pulse Ox 97.5 F L 69 14 102/69 95 11/20/16 11:04 11/20/16 11:04 11/20/16 11:04 11/20/16 11:04 11/20/16 11:04 General appearance: Present: A&O X 3, pleasant, no acute distress, answers questions appropriately - Head Head exam: Present: atraumatic, normocephalic - Eye Eye exam: Present: PERRL, conjuntiva pink, sclera anicteric Pupils: Present: PERRL - Neck Neck exam general surgery: Present: supple, trachea midline. Absent: lymphadenopathy - Respiratory Respiratory exam: Present: decreased breath sounds. Absent: accessory muscle use, rales, respiratory distress, rhonchi, wheezes - Cardiovascular Cardiovascular exam: Present: RRR, +S1, +S2. Absent: diastolic murmur, gallop, rubs, systolic murmur - GI/Abdominal GI/Abdominal exam: Present: normal bowel sounds, soft, tenderness, no peritoneal signs. Absent: distended - Extremities Exam Extremities exam: Present: warm, radial pulses palpable and symetrical. Absent : calf tenderness, cyanotic, pedal edema - Neurological Exam Neurological exam: Present: alert, CN II-XII intact, oriented X3, no focal deficits, strengths equal and symetr throughout. Absent: pronater drift, facial droop, speech deficit - Skin Skin exam: Present: dry, intact, normal color, warm Internal Medicine: Result - Labs CBC & Chem 7: 11/19/16 03:18 11/19/16 03:18 Consult Discharge Plan - Plan Referrals: Reji Lockhart MD [Primary Care Provider] -
[2016-11-20] MEDS ORDERED: SUMAtriptan succinate 50 MG TABLET PO PRN ×2 (14:48→15:25)
[2016-11-20] MEDS ORDERED: 0.9 % Sodium Chloride 1,000 ML IVC SCH (14:50)
[2016-11-20] MEDS: *HR* LORazepam 0.5 MG TABLET PO SCH ×2 (16:34→20:56)
[2016-11-20] MEDS: Haloperidol Lactate 5 MG/ML VIAL IVP PRN (18:48)
[2016-11-20] MEDS: Sennosides/Docusate Sodium TABLET PO SCH (20:55)
[2016-11-20] MEDS: OLANZapine 10 MG TAB.RAPDIS PO SCH (20:55)
[2016-11-21] MEDS: *HR* Promethazine 25 MG/ML VIAL IVP PRN ×3 (04:58→20:13)
[2016-11-21] MEDS: *HR* Heparin 5,000 UNIT/ML VIAL SQ SCH ×2 (06:21→17:03)
[2016-11-21] MEDS: Sucralfate 1 GM TABLET PO SCH ×4 (06:21→20:13)
[2016-11-21] MEDS: Haloperidol Lactate 5 MG/ML VIAL IVP PRN ×3 (06:26→15:52)
[2016-11-21] MEDS: Sennosides/Docusate Sodium TABLET PO SCH ×2 (09:26→20:02)
[2016-11-21] MEDS: Magic Mouthwash 10 ML UD Cup PO SCH ×3 (09:26→20:13)
[2016-11-21] MEDS: Ondansetron 4 MG/2 ML VIAL IVP PRN ×2 (09:26→17:03)
[2016-11-21] MEDS: Pantoprazole 40 MG VIAL IVP SCH (09:27)
[2016-11-21] MEDS: *HR* LORazepam 0.5 MG TABLET PO SCH ×3 (09:27→20:02)
[2016-11-21] MEDS: (Exemestane [Aromasin] 25 MG) PO SCH (09:27)
[2016-11-21] MEDS: EVEROLIMUS 5 MG PO SCH (09:27)
[2016-11-21] MEDS ORDERED: Ondansetron ODT 4 MG TAB.RAPDIS SL PRN (09:38)
[2016-11-21] MEDS: *HR* OxyCODONE Immed Rel 15 MG TABLET PO PRN ×3 (10:07→17:03)
[2016-11-21] MEDS: Bisacodyl 10 MG RECTAL SUPPOSITORY RC PRN (10:08)
[2016-11-21] MEDS: *HR* HYDROmorphone 20 MG/20 ML PCA IVC PRN (10:45)
[2016-11-21] MEDS: Gabapentin 300 MG CAPSULE PO PRN (14:16)
[2016-11-21] MEDS: *HR* FentaNYL PATCH 50 MCG PATCH TD SCH (17:02)
[2016-11-21] MEDS: Famotidine 20 MG/2 ML VIAL IVP SCH (17:30)
[2016-11-21] MEDS: OLANZapine 10 MG TAB.RAPDIS PO SCH (20:02)
--- NOTE | 2016-11-21 20:52 | Internal Med Progress Note ---
Date of Encounter: 11/21/16 Time of Encounter: 09:15 - Assessment and plan (1) Abdominal pain Current Visit: Yes Status: Acute Assessment and plan: Flare of her chronic pain. Left flank pain is possibly secondary to pyelonephritis. 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 Qualifiers: Abdominal location: epigastric Qualified Code(s): R10.13 - Epigastric pain (2) Constipation Current Visit: Yes Status: Acute Assessment and plan: Likely contributed by opiates. Treat her with a Dulcolax suppository and the Dulcolax by mouth Qualifiers: Constipation type: drug induced constipation Qualified Code(s): K59.03 - Drug induced constipation (3) Intractable vomiting Current Visit: Yes Status: Acute Assessment and plan: Improving. Continue with the Zofran Qualifiers: Vomiting type: unspecified Nausea presence: with nausea Qualified Code(s) : R11.2 - Nausea with vomiting, unspecified (4) UTI (urinary tract infection) Current Visit: Yes Status: Acute Assessment and plan: Urine cultures positive for Escherichia coli. Continue ceftriaxone Qualifiers: Urinary tract infection type: acute pyelonephritis Qualified Code(s): N10 - Acute pyelonephritis (5) Metastatic breast cancer Current Visit: No Status: Chronic Assessment and plan: Patient to follow with oncologist, after discharge - Subjective Interval history: Pt is seen and examined at the bedside and chart reviewed. Pt reports some improvement in the abdominal pain. She still continues to have moderate to severe abdominal pain and is requiring Dilaudid by POWERHOUSE TENDER. Also reports her left flank pain. She reports nausea but no vomiting this morning. Denies fever, chills. No dysuria or hematuria. Her last bowel movement was about 6 days ago - Constitutional Vitals: Temp Pulse Resp BP Pulse Ox 97.6 F 85 14 107/73 96 11/21/16 19:17 11/21/16 19:17 11/21/16 19:17 11/21/16 19:17 11/21/16 19:17 Exam: General: Not in mild distress at the time of my evaluation Lungs: Clear to auscultation Cardiac: Regular rate and rhythm. No significant murmurs Abdomen: Tenderness over the mid abdomen. Tenderness in the left renal angle area it Bowel sounds present Neurological: Alert and oriented. No gross localizing deficits Psych: Not aggressive or agitated Extremities: no significant leg edema Skin: No generalized rash Internal Medicine: Result - Labs CBC & Chem 7: 11/19/16 03:18 11/19/16 03:18 Labs: Microbiology 11/18/16 23:50 Urine Culture - Final Urine,Clean Catch Escherichia coli Consult Discharge Plan - Plan Referrals: Reji Lockhart MD [Primary Care Provider] -
[2016-11-22] MEDS: *HR* Promethazine 25 MG/ML VIAL IVP PRN ×3 (04:08→16:17)
[2016-11-22] MEDS: *HR* Heparin 5,000 UNIT/ML VIAL SQ SCH ×2 (05:56→16:17)
[2016-11-22] MEDS: Famotidine 20 MG/2 ML VIAL IVP SCH ×2 (05:56→16:17)
[2016-11-22] MEDS: Haloperidol Lactate 5 MG/ML VIAL IVP PRN ×5 (05:56→20:30)
[2016-11-22] MEDS: Sucralfate 1 GM TABLET PO SCH ×4 (05:56→21:09)
[2016-11-22 05:59] LABS: Hematocrit 35.1 % (35.3-44.9); Hemoglobin 11.8 g/dL (11.5-15.4); Mean Corpuscular HGB Conc 33.6 g/dL (31.6-35.5); Mean Corpuscular Hemoglobin 29.4 pg (28.0-33.3); Mean Corpuscular Volume 87.3 fL (83.0-100.0); Mean Platelet Volume 10.6 fL (9.4-12.4); Platelet Count 121 K/mcL (140-400); Red Blood Count 4.02 M/mcL (3.82-4.97); Red Cell Distribution Width 12.8 % (11.5-14.5)
[2016-11-22 06:13] LABS: BUN/Creatinine Ratio 8 (6-26); Blood Urea Nitrogen 6 mg/dL (7-20); Calcium 9.1 mg/dL (8.6-10.8); Carbon Dioxide 25 mEq/L (19-29); Chloride 108 mEq/L (98-109); Glucose 106 mg/dL (70-99); Magnesium 1.5 mg/dL (1.6-2.6); Osmolality,Calculated 294 (280-300); Potassium 3.6 mEq/L (3.5-4.5); Sodium 143 mEq/L (136-145); eGFR For African Americans > 60 (> 60); eGFR For Non-African Americans > 60 (> 60)
[2016-11-22] MEDS: Gabapentin 300 MG CAPSULE PO PRN ×2 (07:40→13:18)
[2016-11-22] MEDS: Sennosides/Docusate Sodium TABLET PO SCH ×2 (07:40→21:09)
[2016-11-22] MEDS: *HR* LORazepam 0.5 MG TABLET PO SCH ×3 (07:41→21:09)
[2016-11-22] MEDS: Magic Mouthwash 10 ML UD Cup PO SCH ×3 (07:41→21:09)
[2016-11-22] MEDS: Pantoprazole 40 MG VIAL IVP SCH (07:41)
[2016-11-22] MEDS: *HR* OxyCODONE Immed Rel 15 MG TABLET PO PRN ×5 (07:41→18:38)
[2016-11-22] MEDS: *HR* HYDROmorphone (PF) 1 MG/ML SYRINGE IVP PRN ×6 (07:42→20:32)
[2016-11-22] MEDS: Ondansetron 4 MG/2 ML VIAL IVP PRN ×3 (07:42→18:37)
[2016-11-22] MEDS: (Exemestane [Aromasin] 25 MG) PO SCH (07:43)
[2016-11-22] MEDS: EVEROLIMUS 5 MG PO SCH (07:43)
[2016-11-22] MEDS: Bisacodyl 10 MG RECTAL SUPPOSITORY RC PRN (07:44)
[2016-11-22] MEDS ORDERED: *HR* FentaNYL PATCH 50 MCG PATCH TD SCH (10:15)
--- NOTE | 2016-11-22 17:18 | Internal Med Progress Note ---
Date of Encounter: 11/22/16 Time of Encounter: 09:30 - Assessment and plan (1) Abdominal pain Current Visit: Yes Status: Acute Assessment and plan: Flare of her chronic pain. Left flank pain is possibly secondary to pyelonephritis. 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 Pain control is still not adequate. Qualifiers: Abdominal location: epigastric Qualified Code(s): R10.13 - Epigastric pain (2) Constipation Current Visit: Yes Status: Acute Assessment and plan: Likely contributed by opiates. Improved with a Dulcolax suppository and the Dulcolax by mouth Qualifiers: Constipation type: drug induced constipation Qualified Code(s): K59.03 - Drug induced constipation (3) Intractable vomiting Current Visit: Yes Status: Acute Assessment and plan: Vomiting resolved. Nausea is persisting - Continue with the Zofran Qualifiers: Vomiting type: unspecified Nausea presence: with nausea Qualified Code(s) : R11.2 - Nausea with vomiting, unspecified (4) UTI (urinary tract infection) Current Visit: Yes Status: Acute Assessment and plan: Urine cultures positive for Escherichia coli. Continue ceftriaxone. D/C at discharge Qualifiers: Urinary tract infection type: acute pyelonephritis Qualified Code(s): N10 - Acute pyelonephritis (5) Metastatic breast cancer Current Visit: No Status: Chronic Assessment and plan: Patient to follow with oncologist, after discharge (6) Leucopenia Current Visit: Yes Status: Acute Assessment and plan: Monitor WBC count Qualifiers: Leukopenia type: unspecified Qualified Code(s): D72.819 - Decreased white blood cell count, unspecified (7) Hypomagnesemia Current Visit: Yes Status: Acute Assessment and plan: Replenish Magnesium - Subjective Interval history: Pt is seen and examined at the bedside and chart reviewed. Pt reports some improvement in the abdominal pain. 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 Also reports her left flank pain. She reports nausea but no vomiting this morning. Denies fever, chills. No dysuria or hematuria. Had a BM yesterday, with dulcolax suppository - Constitutional Vitals: Temp Pulse Resp BP Pulse Ox 98.2 F 86 16 108/76 95 11/22/16 15:30 11/22/16 15:30 11/22/16 15:30 11/22/16 15:30 11/22/16 15:30 Exam: General: Not in acute distress at the time of my evaluation Lungs: Clear to auscultation Cardiac: Regular rate and rhythm. No significant murmurs Abdomen: Soft, mild upper abdominal tenderness and left flank tenderness. Bowel sounds present Neurological: Alert and oriented. No gross localizing deficits Psych: Not aggressive or agitated Extremities: no significant leg edema Skin: No generalized rash Internal Medicine: Result - Labs CBC & Chem 7: 11/22/16 05:16 11/22/16 05:16 Labs: Short CBC 11/22/16 Range/Units 05:16 WBC 3.3 L (4.3-11.1) K/mcL Hgb 11.8 (11.5-15.4) g/dL Hct 35.1 L (35.3-44.9) % Plt Count 121 L (140-400) K/mcL [facility] 11/22/16 05:16 Sodium 143 Potassium 3.6 Chloride 108 Carbon Dioxide 25 BUN 6 L Creatinine 0.74 Glucose 106 H Calcium 9.1 Consult Discharge Plan - Plan Referrals: Reji Lockhart MD [Primary Care Provider] -
[2016-11-22] MEDS: OLANZapine 10 MG TAB.RAPDIS PO SCH (21:09)
[2016-11-23] MEDS: *HR* Promethazine 25 MG/ML VIAL IVP PRN ×3 (04:28→17:53)
[2016-11-23] MEDS: *HR* HYDROmorphone (PF) 1 MG/ML SYRINGE IVP PRN ×4 (04:28→22:24)
[2016-11-23 04:32] LABS: Basophils % 0.5 %; Eosinophils # 0.1 K/mcL (0.0-0.6); Eosinophils % 2.5 %; Hematocrit 35.4 % (35.3-44.9); Hemoglobin 12.1 g/dL (11.5-15.4); Immature Platelets 5.4 % (1.1-6.1); Lymphocytes # 1.5 K/mcL (0.6-4.6); Lymphocytes % 37.4 %; Mean Corpuscular HGB Conc 34.2 g/dL (31.6-35.5); Mean Corpuscular Hemoglobin 30.5 pg (28.0-33.3); Mean Corpuscular Volume 89.2 fL (83.0-100.0); Mean Platelet Volume 10.2 fL (9.4-12.4); Monocytes # 0.4 K/mcL (0.0-1.3); Monocytes % 8.9 %; Platelet Count 181 K/mcL (140-400); Red Blood Count 3.97 M/mcL (3.82-4.97); Red Cell Distribution Width 12.9 % (11.5-14.5); Segmented Neutrophils % 49.7 %
[2016-11-23] MEDS: Sucralfate 1 GM TABLET PO SCH ×4 (06:31→22:15)
[2016-11-23] MEDS: *HR* Heparin 5,000 UNIT/ML VIAL SQ SCH ×2 (06:31→17:53)
[2016-11-23] MEDS: Famotidine 20 MG/2 ML VIAL IVP SCH ×2 (06:31→17:52)
[2016-11-23] MEDS ORDERED: Magnesium Sulfate 1 GM in D5% in Water 100 ML IVPB ONE (07:00)
[2016-11-23] MEDS: Ondansetron 4 MG/2 ML VIAL IVP PRN ×2 (08:22→14:33)
[2016-11-23] MEDS: Haloperidol Lactate 5 MG/ML VIAL IVP PRN (08:22)
[2016-11-23] MEDS: Lactobacillus 1 EACH CAP.SPRINK PO SCH ×2 (08:22→22:14)
[2016-11-23] MEDS: Sennosides/Docusate Sodium TABLET PO SCH ×2 (08:22→22:15)
[2016-11-23] MEDS: Magic Mouthwash 10 ML UD Cup PO SCH ×3 (08:22→22:14)
[2016-11-23] MEDS: *HR* LORazepam 0.5 MG TABLET PO SCH ×3 (08:22→22:17)
[2016-11-23] MEDS: Pantoprazole 40 MG VIAL IVP SCH (08:22)
[2016-11-23] MEDS: EVEROLIMUS 5 MG PO SCH (08:23)
[2016-11-23] MEDS: (Exemestane [Aromasin] 25 MG) PO SCH (08:23)
[2016-11-23] MEDS: *HR* OxyCODONE Immed Rel 15 MG TABLET PO PRN ×3 (09:47→20:33)
--- NOTE | 2016-11-23 13:31 | Internal Med Progress Note ---
Date of Encounter: 11/23/16 Time of Encounter: 10:30 - Assessment and plan (1) Acute lumbar back pain Current Visit: Yes Status: Acute Assessment and plan: Patient stating she was adjusting herself in bed when she felt a pop in her lower back. She is endorsing severe pain since that time. She is also endorsing right-sided radiculopathy with shooting pain and numbness extending into her right gluteal area. We will obtain plain films for possible compression fracture given that she is on chemotherapy. On examination, area from approximately L3-L5 appear swollen and is highly tender. Paraspinal muscular tenderness also noted bilaterally worse on the right. Plain films pending. Patient denies any loss of bowel or bladder control. She is able to walk however is experiencing severe pain. Bilateral legs neurovascularly intact. Initial plan was for possible discharge today however given this acute onset of back pain, further investigation is warranted for acute processes. 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 She is receiving her fentanyl patch 50 g, Dilaudid 1 mg every 2 hours and oxycodone 30 mg every 4 hours as needed. She states she had a small bowel movement yesterday but states she continues to feel constipated and is requesting an enema at this time. She states she was able to eat a little bit of her breakfast. We will continue to control her pain. We will order an acute abdominal series as her abdomen is more distended and firm than prior examinations. ITS Impressions Abdomen/Pelvis CT 11/18/16 12:50 IMPRESSION: No acute abnormality of the abdomen or pelvis. D/ / Mihir Martines MD / Mihir Martines MD Interpreting Provider: Mihir Martines MD (3) Intractable nausea and vomiting Current Visit: No Status: Resolved Qualifiers: Vomiting type: unspecified Qualified Code(s): R11.2 - Nausea with vomiting , unspecified (4) Cancer related pain Current Visit: No Status: Chronic Assessment and plan: Continue current pain management (5) DVT prophylaxis Current Visit: Yes Status: Acute Assessment and plan: Subcutaneous heparin (6) Constipation Current Visit: No Status: Chronic Assessment and plan: Small bowel movement yesterday, remains constipated, will give another enema. Acute abdominal series pending. 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 Patient stating that she takes Ativan 3 times a day home - Subjective Interval history: Patient seen and examined. On examination, patient initially ambulatory to her sink and back. Patient complaining of severe lower back pain with shooting pain to her right gluteal area. Patient stating she removed herself in bed and heard a pop in her lower back earlier today and has been endorsing severe lower back pain since then. Patient also stating she had a small bowel movement yesterday but continues to be constipated and she is requesting another enema. Patient stating her pain in her abdomen in her lower back is currently uncontrolled. She states she was able to tickle a bit of her breakfast this morning. - Constitutional Vitals: Temp Pulse Resp BP Pulse Ox 98.0 F 90 16 111/75 94 L 11/23/16 11:14 11/23/16 11:14 11/23/16 11:14 11/23/16 11:14 11/23/16 11:14 General appearance: Present: A&O X 3, pleasant, no acute distress, answers questions appropriately - Head Head exam: Present: atraumatic, normocephalic - Eye Eye exam: Present: PERRL, conjuntiva pink, sclera anicteric Pupils: Present: PERRL - Neck Neck exam general surgery: Present: supple, trachea midline. Absent: lymphadenopathy - Respiratory Respiratory exam: Present: decreased breath sounds. Absent: accessory muscle use, rales, respiratory distress, rhonchi, wheezes - Cardiovascular Cardiovascular exam: Present: RRR, +S1, +S2. Absent: diastolic murmur, gallop, rubs, systolic murmur - GI/Abdominal GI/Abdominal exam: Present: distended, firm, hypoactive bowel sounds, soft, tenderness (diffuse), no peritoneal signs - Extremities Exam Extremities exam: Present: warm, radial pulses palpable and symetrical. Absent : calf tenderness, cyanotic, pedal edema - Back Exam Back exam: Absent: normal inspection (edema on l3-l5 area) - Neurological Exam Neurological exam: Present: alert, CN II-XII intact, oriented X3, no focal deficits, strengths equal and symetr throughout. Absent: pronater drift, facial droop, speech deficit - Skin Skin exam: Present: dry, intact, pallor, warm Internal Medicine: Result - Labs CBC & Chem 7: 11/23/16 04:15 11/22/16 05:16 Labs: Short CBC 11/23/16 Range/Units 04:15 WBC 3.9 L (4.3-11.1) K/mcL Hgb 12.1 (11.5-15.4) g/dL Hct 35.4 (35.3-44.9) % Plt Count 181 (140-400) K/mcL Neutrophils # 2.0 (1.6-8.9) K/mcL Consult Discharge Plan - Plan Referrals: Reji Lockhart MD [Primary Care Provider] -
[2016-11-23] MEDS: OLANZapine 10 MG TAB.RAPDIS PO SCH (22:24)
[2016-11-24] MEDS: *HR* Promethazine 25 MG/ML VIAL IVP PRN ×2 (05:05→11:30)
[2016-11-24] MEDS: *HR* HYDROmorphone (PF) 1 MG/ML SYRINGE IVP PRN ×5 (05:06→16:42)
[2016-11-24] MEDS: Famotidine 20 MG/2 ML VIAL IVP SCH (06:43)
[2016-11-24] MEDS: *HR* Heparin 5,000 UNIT/ML VIAL SQ SCH (06:43)
[2016-11-24] MEDS: Sucralfate 1 GM TABLET PO SCH ×3 (06:43→14:45)
[2016-11-24] MEDS: Sennosides/Docusate Sodium TABLET PO SCH (08:51)
[2016-11-24] MEDS: Pantoprazole 40 MG VIAL IVP SCH (08:52)
[2016-11-24] MEDS: Ondansetron 4 MG/2 ML VIAL IVP PRN ×2 (08:52→13:05)
[2016-11-24] MEDS: Haloperidol Lactate 5 MG/ML VIAL IVP PRN ×2 (08:52→13:05)
[2016-11-24] MEDS: Lactobacillus 1 EACH CAP.SPRINK PO SCH (08:52)
[2016-11-24] MEDS: Magic Mouthwash 10 ML UD Cup PO SCH ×2 (08:52→14:45)
[2016-11-24] MEDS: *HR* LORazepam 0.5 MG TABLET PO SCH ×2 (08:52→14:40)
[2016-11-24] MEDS: (Exemestane [Aromasin] 25 MG) PO SCH (09:04)
[2016-11-24] MEDS: EVEROLIMUS 5 MG PO SCH (09:04)
[2016-11-24 11:19] VITALS: BP 112/76
--- NOTE | 2016-11-24 12:46 | Discharge Summary ---
Date of Encounter: 11/24/16 Time of Encounter: 09:45 (and 1230) - Discharge Diagnosis (1) Acute lumbar back pain Priority: Primary Status: Acute Comments: Plain imaging negative for acute processes, recommend follow-up outpatient. Lidocaine patch for localized pain. Patient with upright and steady gait. 11/23/16 Patient stating she was adjusting herself in bed when she felt a pop in her lower back. She is endorsing severe pain since that time. She is also endorsing right-sided radiculopathy with shooting pain and numbness extending into her right gluteal area. We will obtain plain films for possible compression fracture given that she is on chemotherapy. On examination, area from approximately L3-L5 appear swollen and is highly tender. Paraspinal muscular tenderness also noted bilaterally worse on the right. Plain films pending. Patient denies any loss of bowel or bladder control. She is able to walk however is experiencing severe pain. Bilateral legs neurovascularly intact. Initial plan was for possible discharge today however given this acute onset of back pain, further investigation is warranted for acute processes. Qualifiers: Back pain laterality: midline Sciatica presence: with sciatica Sciatica laterality: sciatica of right side Qualified Code(s): M54.41 - Lumbago with sciatica, right side (2) Generalized abdominal pain Priority: Secondary Status: Chronic Comments: Patient stating her pain was at a tolerable level on day of discharge. Abdominal CT negative for acute processes. Patient was also able to tolerate a regular diet prior to discharge. Her constipation was also addressed with a total of 3 enemas while admitted. (3) Intractable nausea and vomiting Priority: Primary Status: Resolved Qualifiers: Vomiting type: unspecified Qualified Code(s): R11.2 - Nausea with vomiting , unspecified (4) Cancer related pain Priority: Secondary Status: Chronic (5) DVT prophylaxis Priority: Primary Status: Acute Comments: Subcutaneous heparin while admitted (6) Constipation Priority: Secondary Status: Resolved Qualifiers: Constipation type: slow transit constipation Qualified Code(s): K59.01 - Slow transit constipation (7) GERD (gastroesophageal reflux disease) Priority: Secondary Status: Chronic Comments: Denies current symptoms, continue Carafate and Protonix Qualifiers: Esophagitis presence: with esophagitis Qualified Code(s): K21.0 - Gastro- esophageal reflux disease with esophagitis (8) Metastatic breast cancer Priority: Secondary Status: Chronic Comments: She has an appointment with Dr. 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 - Discharge Medications Prescriptions: Promethazine [Phenergan] 25 mg PO Q6HR PRN #60 tablet PRN Reason: Nausea And Vomiting Bisacodyl [Dulcolax] 10 mg RC DAILY PRN #15 supp.rect PRN Reason: Constipation Gabapentin [Neurontin] 300 mg PO TID PRN #90 capsule PRN Reason: Pain Home Medications: Esomeprazole Magnesium [Nexium] 40 mg PO DAILY #30 capsule. 12/16/15 [Rx] Ondansetron [Zofran] 8 mg PO Q8HR PRN #60 tablet 06/17/16 [Rx] Sennosides/Docusate Sodium [Senna Plus] 1 each PO BID PRN #60 tablet 07/16/16 [ Rx] Haloperidol [Haldol] 5 mg PO HS PRN #30 tablet 08/06/16 [Rx] LORazepam [Ativan] 0.5 mg PO TID PRN 09/23/16 [History] Everolimus [Afinitor] 5 mg PO DAILY #30 tablet 09/28/16 [Rx] Exemestane [Aromasin] 25 mg PO DAILY #30 tablet 09/28/16 [Rx] Lidocaine/Prilocaine CREAM [Emla] 1 appl TP AD #1 tube 09/28/16 [Rx] Sorbitol Soln [Sorbitol] 15 - 30 ml PO DAILY PRN #1 solution 09/28/16 [Rx] Sucralfate [Carafate] 1 gm PO QIDAC #120 tablet 09/28/16 [Rx] OLANZapine [Zyprexa Zydis] 10 mg PO HS #20 tab.rapdis 10/22/16 [Rx] FentaNYL PATCH [Duragesic] 50 mcg TD Q72H #10 patch.td72 10/27/16 [Rx] Magic Mouthwash 10 ml PO TID #900 ml 10/27/16 [Rx] Oxycodone HCl [Roxicodone 30 MG Immed Release] 30 mg PO Q4HR PRN #150 tab [Rx] SUMAtriptan Succinate [Imitrex] 100 mg PO AD PRN #12 tablet 10/27/16 [Rx] Zolpidem [Ambien] 10 mg PO HS PRN #30 tablet 11/03/16 [Rx] Bisacodyl [Dulcolax] 10 mg RC DAILY PRN #15 supp.rect 11/24/16 [Rx] Gabapentin [Neurontin] 300 mg PO TID PRN #90 capsule 11/24/16 [Rx] Promethazine [Phenergan] 25 mg PO Q6HR PRN #60 tablet 11/24/16 [Rx] Allergies/Adverse Reactions: Allergies metoclopramide [From Reglan] Allergy (Verified 10/27/16 10:23) See Comments Date of admission: 11/19/16 16:12 Primary care physician: Reji Acuna Discharging clinician: Katie Stout Anticipated date of discharge: 11/24/16 - Patient Status Disposition: Home, Self-Care Condition: Fair Functional capacity at discharge: independent ambulation Overall status at discharge: patient is back to baseline - Discharge Instructions Follow Up With: Reji Acuna MD [Primary Care Provider] - Additional Instructions: Follow-up with oncology tomorrow as scheduled - Diet and Activity Activity: increase activity as tolerated Diet: regular diet Hospital course: Ms. Donahue is a 36 year old female with past medical history of metastatic breast cancer with metastasis to bone, central nervous system, liver patient of Dr. Acuna. Patient has received hormone therapy, radiation therapy, and is status post bilateral mastectomy and is currently on oral chemotherapy. Patient stating she has been tolerating her oral chemotherapy well however on the Wednesday prior to presentation she began to experience nausea, vomiting, and abdominal pain. Patient stating her abdominal pain is mid epigastric and radiates to her left side and described as burning and is aggravated with food and vomiting and relieved with pain medication. Patient stating she ran out of her fentanyl patches 2 weeks prior to presentation and she states she has been taking her oxycodone without effect. Patient stating she was vomiting 4-5 times a day and had not taken any medication for the 2 days prior to presentation. Patient denied hematemesis, diarrhea, hematochezia. Patient had an EGD and colonoscopy in June 2016 and revealed diffused inflammation and she was placed on a PPI twice a day. Workup in the emergency department unremarkable except for an abnormal urinalysis. Abdominal and pelvic CT negative for acute processes. Patient was admitted to the hospitalist service for further evaluation and management. Oncology was brought on board who recommended continued symptomatic treatment and follow-up outpatient. Patient was placed back on her vaginal patch. 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 She was slowly weaned off the Dilaudid pump and her pain and nausea were able to be tolerated with by mouth medications. She was able to tolerate a regular diet prior to discharge. On the sixth day of her admission, patient stating she was moving in bed when she felt her lower back pop followed by severe pain radiating down her right buttock. Lumbar spine x-ray unremarkable. Injury was treated with pain medication. Patient still had an upright and steady gait and denied paresthesias. Patient was also constipated and received a total of 3 enemas while admitted. Acute abdominal series also unremarkable on the day prior to discharge. Acute abdominal series was ordered due to increased abdominal distention and pain to rule out an obstruction. Patient's fentanyl patch was placed the day prior to discharge and she has a follow-up appointment with her oncologist on the day after discharge. She was given refills of her gabapentin and Phenergan and she stated that she had plenty of oral pain medication at home. She was discharged home in stable condition with follow-up with her oncologist Dr. Acuna now at [facility] tomorrow (11/25/16). ITS Impressions Abdomen/Pelvis CT 11/18/16 12:50 IMPRESSION: No acute abnormality of the abdomen or pelvis. D/ / Mihir Martines MD / Mihir Martines MD Interpreting Provider: Mihir Martines MD Chest/Abdomen X-ray 11/23/16 13:29 IMPRESSION: No evidence of obstruction or free air. No focal consolidation. D/ / Savannah Teran MD / Savannah Teran MD Interpreting Provider: Savannah Teran MD Lumbar Spine X-Ray 11/23/16 13:29 IMPRESSION: Mild degenerative disc disease involving T12-L1. No compression deformity or destructive lesion is seen. D/ / Savannah Teran MD / Savannah Teran MD Interpreting Provider: Svaannah Teran MD - Time Spent with Patient Total time spent providing and/or coordinating discharge services: - Constitutional Vitals: Temp Pulse Resp BP Pulse Ox 98.1 F 77 15 112/76 93 L 11/24/16 10:59 11/24/16 10:59 11/24/16 10:59 11/24/16 10:59 11/24/16 10:59 General appearance: Present: A&O X 3, pleasant, no acute distress, answers questions appropriately - Head Head exam: Present: atraumatic, normocephalic - Eye Eye exam: Present: PERRL, conjuntiva pink, sclera anicteric Pupils: Present: PERRL - Neck Neck exam general surgery: Present: supple, trachea midline. Absent: lymphadenopathy - Respiratory Respiratory exam: Present: CTAB. Absent: accessory muscle use, rales, respiratory distress, rhonchi, wheezes - Cardiovascular Cardiovascular exam: Present: RRR, +S1, +S2. Absent: diastolic murmur, gallop, rubs, systolic murmur - GI/Abdominal GI/Abdominal exam: Present: hyperactive bowel sounds, soft, tenderness (diffuse) , no peritoneal signs. Absent: distended - Extremities Exam Extremities exam: Present: warm, radial pulses palpable and symetrical. Absent : calf tenderness, cyanotic, pedal edema - Neurological Exam Neurological exam: Present: alert, CN II-XII intact, normal gait, oriented X3, no focal deficits, strengths equal and symetr throughout. Absent: pronater drift, facial droop, speech deficit - Expanded Neurological Exam Coma Scale Eye Opening: Spontaneous Coma Scale Motor Response: Obeys Commands Coma Scale Verbal Response: Oriented Coma Scale Total: 15 - Skin Skin exam: Present: dry, intact, pallor, warm
[2016-11-24] MEDS: *HR* OxyCODONE Immed Rel 15 MG TABLET PO PRN (13:05)
[2016-11-24] MEDS ORDERED: Famotidine 20 MG TABLET PO SCH (18:00)
== END 2016-11-24 16:55 | disposition home or self-care (01) | DRG 343 ==
LOC: 3BNU 10:11 → EMEROO 10:11 → 3BNU 16:20
PROVIDERS: ADMIT Nurse Practitioner Family; ATTEND Nurse Practitioner Family

== ENCOUNTER 2017-09-08 14:58 | Inpatient (IN) ==
[2017-09-08] MEDS ORDERED: Ondansetron 4 MG/2 ML VIAL IVP ONE (15:23)
[2017-09-08] MEDS ORDERED: 0.9 % Sodium Chloride 1,000 ML IVC ONE (15:23)
[2017-09-08] MEDS ORDERED: *HR* HYDROmorphone (PF) 1 MG/ML SYRINGE IVP ONE ×2 (15:23→17:07)
--- NOTE | 2017-09-08 15:27 | Emergency Department Note ---
Disposition Clinical Impression: Nausea and vomiting Qualifiers: Vomiting type: unspecified Vomiting Intractability: intractable Qualified Code( s): R11.2 - Nausea with vomiting, unspecified Abdominal pain Qualifiers: Abdominal location: unspecified location Qualified Code(s): R10.9 - Unspecified abdominal pain Disposition: Admitted As Inpatient Condition: Fair Referrals: NONE,PCP [Primary Care Provider] - Forms: ED Satisfaction Letter General Adult HPI - General Chief complaint: ED Dizziness Stated complaint: N/V/D, Low back pain, cancer patient Time Seen by Provider: 09/08/17 15:14 Source: patient, family Limitations: no limitations Nursing Notes Reviewed: Yes Vital Signs Reviewed: Yes - History of Present Illness HPI Narrative: Patient presents today for evaluation of abdominal pain, nausea, vomiting. Patient has a history of breast cancer with metastasis. Patient is treated by Dr. Monsivais at [facility]. Patient states that she was supposed to have an appointment today for evaluation of chemotherapy treatment that she has been placed on. Patient states that she started new chemotherapy of bowel 3 days ago. Patient has progressively gotten more nauseous with associated vomiting and abdominal pain. Patient was originally diagnosed with breast cancer in 2012 and has undergone various treatments since then. Last chemotherapy prior to the recently started chemotherapy was approximately 3 months ago where she had been touch and go for about 6 months. Recently finished radiation therapy for one of the lesions on her back. The recent switch to this chemotherapy was for some of the new and concerning lesions. At this point the patient will need fluids, pain control, antibiotics, CT scans of the head and abdomen. Pain Scale: 8 - Related Data Home Medications Medication Instructions Recorded Confirmed LORazepam [Ativan] 0.5 mg PO TID PRN 09/23/16 07/01/17 Sucralfate [Carafate] 1 gm PO QIDAC PRN 03/05/17 07/01/17 Ciprofloxacin [Cipro] 500 mg PO BID 07/01/17 07/01/17 FentaNYL PATCH [Duragesic] 50 mcg TD Q72H 07/01/17 07/01/17 Previous Rx's Medication Instructions Recorded Esomeprazole Magnesium [Nexium] 40 mg PO DAILY #30 capsule. 12/16/15 Sennosides/Docusate Sodium [Senna 1 each PO BID PRN #60 tablet 07/16/16 Plus] Lidocaine/Prilocaine CREAM [Emla] 1 appl TP AD #1 tube 09/28/16 Sorbitol Soln [Sorbitol] 15 - 30 ml PO DAILY PRN #1 solution 09/28/16 OLANZapine [Zyprexa Zydis] 10 mg PO HS #20 tab.rapdis 10/22/16 SUMAtriptan Succinate [Imitrex] 100 mg PO AD PRN #12 tablet 10/27/16 Zolpidem [Ambien] 10 mg PO HS PRN #30 tablet 11/03/16 Gabapentin [Neurontin] 300 mg PO TID PRN #90 capsule 11/24/16 Promethazine [Phenergan] 25 mg PO Q6HR PRN #60 tablet 11/24/16 Oxycodone HCl [Roxicodone 30 MG 30 mg PO Q4HR PRN #150 tab 01/21/17 Immed Release] Naloxegol Oxalate [Movantik] 25 mg PO QAM #30 tablet 03/05/17 Ondansetron [Zofran] 8 mg PO Q8HR PRN #60 tablet 03/09/17 Lactulose 30 ml PO DAILY #300 solution 04/02/17 Allergies Allergy/AdvReac Type Severity Reaction Status Date / Time metoclopramide [From Reglan] Allergy See Verified 09/08/17 15:06 Comments denosumab [From Xgeva] AdvReac Anaphylaxis Verified 09/08/17 15:06 Review of Systems: CONSTITUTIONAL: Fatigue, dizziness, weakness, fall No weight loss, fever, chills , HEENT: Eyes: No visual changes. Ears, Nose, Throat: No hearing loss, difficulty talking or unable to swallow. SKIN: No rash or itching. CARDIOVASCULAR: No chest pain, chest pressure or chest discomfort. No palpitations or edema. RESPIRATORY: No shortness of breath, cough or sputum. GASTROINTESTINAL: Abdominal pain with associated nausea and vomiting GENITOURINARY: No burning on urination or hematuria. NEUROLOGICAL: No headache, syncope, paralysis, ataxia, numbness or tingling in the extremities. No change in bowel or bladder control. MUSCULOSKELETAL: No muscle pain, back pain, joint pain or stiffness. Past Medical History - Past Medical History Medical history: Reports: cancer, kidney stones Surgical history: Reports: breast surgery, cancer surgery, cholecystectomy, hysterectomy Psychiatric history: Reports: no psych history STERILE PROC TECH history: Reports: no STERILE PROC TECH history - Social History Smoking Status: Former smoker Smokeless Tobacco Status: No Alcohol use: Reports: none Drug use: Reports: none Physical Exam General: Actively vomiting. Head: Normocephalic Atraumatic Eyes: PERRL, EOMI ENT: Airway patent, no stridor Neck: supple, no meningismus Chest: Lungs clear to auscultation bilateral Cardiac: Regular rate and rhythm, no murmurs, rubs or gallops Abdomen: soft, tenderness to the suprapubic region as well as the right lower quadrant. No rebound or guarding. Musculoskeletal: Calves symmetric, nontender, no palpable cord Skin: No rash, normal skin tone Neuro: Alert and Oriented to person, place, and time; No focal deficit, CN 2-12 symmetric and intact - General Limitations: no limitations General appearance: alert, in no apparent distress Course Course Narrative: Patient has had repeated episodes of nausea and abdominal pain. Patient has received 4 mg of Dilaudid in the emergency department as well as multiple doses of Zofran and Phenergan and Benadryl. Patient will need admission for pain control and intractable nausea and vomiting. - Consultations Consultation #1: Discussed with Dr. Rawls. Patient accepted for admission. Vital Signs Temperature 98.1 F 09/08/17 15:02 Pulse Rate 148 09/08/17 15:02 Respiratory Rate 16 09/08/17 15:02 Blood Pressure 102/72 09/08/17 15:02 O2 Sat by Pulse Oximetry 96 09/08/17 15:02 Temperature 98.1 F 09/08/17 15:14 Pulse Rate 77 09/08/17 17:48 Respiratory Rate 12 09/08/17 17:48 Blood Pressure 104/79 09/08/17 17:48 O2 Sat by Pulse Oximetry 98 09/08/17 17:48 Oxygen Delivery Oxygen Delivery Room Air Medical Decision Making - Lab Data Result diagrams: 09/08/17 15:35 09/08/17 15:35 Lab Results 09/08/17 09/08/17 09/08/17 Range/Units 15:35 15:35 15:35 WBC 3.6 L (4.3-11.1) K/mcL RBC 4.55 (3.82-4.97) M/mcL Hgb 14.4 (11.5-15.4) g/dL Hct 41.2 (35.3-44.9) % MCV 90.5 (83.0-100.0) fL MCH 31.6 (28.0-33.3) pg MCHC 35.0 (31.6-35.5) g/dL RDW 12.8 (11.5-14.5) % Plt Count 158 (140-400) K/mcL MPV 9.9 (9.4-12.4) fL Immature Gran % 0.3 (0-4) % Seg Neutrophils % 45.4 % Lymphocytes % 39.9 % Monocytes % 11.8 % Eosinophils % 2.0 % Basophils % 0.6 % Neutrophils # 1.6 (1.6-8.9) K/mcL Lymphocytes # 1.4 (0.6-4.6) K/mcL Monocytes # 0.4 (0.0-1.3) K/mcL Eosinophils # 0.1 (0.0-0.6) K/mcL Basophils # 0.0 (0.0-0.2) K/mcL PT 12.6 H (9.4-12.1) Seconds INR 1.2 Sodium 139 (136-145) mEq/L Potassium 3.5 (3.5-4.5) mEq/L Chloride 102 (98-109) mEq/L Carbon Dioxide 23 (19-29) mEq/L BUN 15 (7-20) mg/dL Creatinine 0.76 (0.57-1.11) mg/dL Est GFR ( Amer) > 60 (> 60) Est GFR (Non-Af Amer) > 60 (> 60) BUN/Creatinine Ratio 20 (6-26) Glucose 76 (70-99) mg/dL Calculated Osmolality 288 (280-300) Lactic Acid (0.5-2.2) mmol/L Calcium 9.6 (8.6-10.8) mg/dL Total Bilirubin 1.1 (0.2-1.2) mg/dL Direct Bilirubin 0.4 (0.0-0.5) mg/dL Indirect Bilirubin 0.7 (0.0-1.2) mg/dL AST 21 (5-34) Units/L ALT 15 (0-55) Units/L Alkaline Phosphatase 130 H (38-126) Units/L Troponin I (0-0.03) ng/mL Serum Total Protein 7.0 (6.0-8.3) g/dL Albumin 3.6 (3.5-5.0) g/dL Globulin 3.4 (2.4-3.5) g/dL Albumin/Globulin Ratio 1.1 (1.1-2.2) Lipase 37 (8-78) Units/L 09/08/17 09/08/17 Range/Units 15:35 15:35 WBC (4.3-11.1) K/mcL RBC (3.82-4.97) M/mcL Hgb (11.5-15.4) g/dL Hct (35.3-44.9) % MCV (83.0-100.0) fL MCH (28.0-33.3) pg MCHC (31.6-35.5) g/dL RDW (11.5-14.5) % Plt Count (140-400) K/mcL MPV (9.4-12.4) fL Immature Gran % (0-4) % Seg Neutrophils % % Lymphocytes % % Monocytes % % Eosinophils % % Basophils % % Neutrophils # (1.6-8.9) K/mcL Lymphocytes # (0.6-4.6) K/mcL Monocytes # (0.0-1.3) K/mcL Eosinophils # (0.0-0.6) K/mcL Basophils # (0.0-0.2) K/mcL PT (9.4-12.1) Seconds INR Sodium (136-145) mEq/L Potassium (3.5-4.5) mEq/L Chloride (98-109) mEq/L Carbon Dioxide (19-29) mEq/L BUN (7-20) mg/dL Creatinine (0.57-1.11) mg/dL Est GFR ( Amer) (> 60) Est GFR (Non-Af Amer) (> 60) BUN/Creatinine Ratio (6-26) Glucose (70-99) mg/dL Calculated Osmolality (280-300) Lactic Acid 1.2 (0.5-2.2) mmol/L Calcium (8.6-10.8) mg/dL Total Bilirubin (0.2-1.2) mg/dL Direct Bilirubin (0.0-0.5) mg/dL Indirect Bilirubin (0.0-1.2) mg/dL AST (5-34) Units/L ALT (0-55) Units/L Alkaline Phosphatase (38-126) Units/L Troponin I 0.00 (0-0.03) ng/mL Serum Total Protein (6.0-8.3) g/dL Albumin (3.5-5.0) g/dL Globulin (2.4-3.5) g/dL Albumin/Globulin Ratio (1.1-2.2) Lipase (8-78) Units/L Attestation Statement - Attestation Attestation: I examined this patient and my medical decision-making was reviewed with the Resident Physician. I agree with the documented findings, disposition and treatment plan as described except to the extent set forth below. Patient ate a complaint of abdominal pain, nausea vomiting, and dehydration. Patient is currently on chemotherapy for stage IV breast cancer. Undergoing care of oncology team in [facility]. On exam she is uncomfortable. Tachycardic. Right-sided abdominal tenderness. Plan. Labs, CT, pain meds and nausea meds. Likely admission.
[2017-09-08] MEDS ORDERED: 0.9 % Sodium Chloride 1,000 ML IVC SCH (15:30)
[2017-09-08 15:45] LABS: Basophils % 0.6 %; Eosinophils # 0.1 K/mcL (0.0-0.6); Hematocrit 41.2 % (35.3-44.9); Hemoglobin 14.4 g/dL (11.5-15.4); Immature Granulocytes % 0.3 % (0-4); Lymphocytes # 1.4 K/mcL (0.6-4.6); Lymphocytes % 39.9 %; Mean Corpuscular Hemoglobin 31.6 pg (28.0-33.3); Mean Corpuscular Volume 90.5 fL (83.0-100.0); Mean Platelet Volume 9.9 fL (9.4-12.4); Monocytes # 0.4 K/mcL (0.0-1.3); Monocytes % 11.8 %; Neutrophils # 1.6 K/mcL (1.6-8.9); Platelet Count 158 K/mcL (140-400); Red Blood Count 4.55 M/mcL (3.82-4.97); Red Cell Distribution Width 12.8 % (11.5-14.5); Segmented Neutrophils % 45.4 %
[2017-09-08 15:48] LABS: INR 1.2; Prothrombin Time 12.6 Seconds (9.4-12.1)
[2017-09-08] MEDS ORDERED: *HR* HYDROmorphone 2 MG/ML SYRINGE IVP ONE (15:58)
[2017-09-08 15:59] LABS: BUN/Creatinine Ratio 20 (6-26); Bilirubin,Total 1.1 mg/dL (0.2-1.2); Blood Urea Nitrogen 15 mg/dL (7-20); Calcium 9.6 mg/dL (8.6-10.8); Carbon Dioxide 23 mEq/L (19-29); Chloride 102 mEq/L (98-109); Glucose 76 mg/dL (70-99); Osmolality,Calculated 288 (280-300); Potassium 3.5 mEq/L (3.5-4.5); Sodium 139 mEq/L (136-145); eGFR For African Americans > 60 (> 60); eGFR For Non-African Americans > 60 (> 60)
[2017-09-08 16:00] LABS: Alanine Aminotransferase 15 Units/L (0-55); Albumin 3.6 g/dL (3.5-5.0); Albumin/Globulin Ratio 1.1 (1.1-2.2); Alkaline Phosphatase 130 Units/L (38-126); Aspartate Amino Transferase 21 Units/L (5-34); Bilirubin,Direct 0.4 mg/dL (0.0-0.5); Bilirubin,Indirect 0.7 mg/dL (0.0-1.2); Globulin 3.4 g/dL (2.4-3.5); Lipase 37 Units/L (8-78)
[2017-09-08] MEDS ORDERED: *HR* Promethazine 25 MG/ML VIAL ONE (16:19)
[2017-09-08] MEDS: *HR* Promethazine 25 MG/ML VIAL IVP ONE (18:02)
[2017-09-08] MEDS ORDERED: *HR* Promethazine 25 MG/ML VIAL IVP ONE (18:11)
[2017-09-08 18:14] LABS: Bilirubin,Urine Moderate (Negative); Blood,Urine Negative (Negative); Clarity,Urine Clear (Clear); Color,Urine Dark Yellow (Yellow); Glucose,Urine (UA) Normal (Normal); Ketones,Urine 80 mg/dL (Negative); Leukocyte Esterase,Urine Negative (Negative); Nitrite,Urine Negative (Negative); Protein,Urine 30 mg/dL (Neg-Trace); Specific Gravity,Urine > 1.030 (1.010-1.025); Urobilinogen,Urine Normal (Normal)
[2017-09-08 18:21] LABS: Bacteria,Urine None Seen per hpf (None-Few); Hyaline Casts,Urine None Seen per lpf (None-Few); Squamous Epithelial Cell,Urine Moderate per lpf (None-Few)
--- NOTE | 2017-09-08 18:51 | Emergency Department Note ---
START Narrative - START START: EKG shows sinus tachycardia at a ventricular rate of 146. Your interval 124. QRS 75. QTC 384. Patient has no significant ST elevations or depressions. Patient's EKG with sinus tachycardia compared to previous of 06/30/2017.
[2017-09-08] MEDS ORDERED: Sennosides/Docusate Sodium TABLET PO PRN (20:58)
[2017-09-08] MEDS ORDERED: *HR* LORazepam 0.5 MG TABLET PO PRN (20:58)
[2017-09-08] MEDS ORDERED: SUMAtriptan succinate 50 MG TABLET PO PRN (20:58)
[2017-09-08] MEDS ORDERED: Ondansetron ODT 4 MG TAB.RAPDIS PO PRN (20:58)
[2017-09-08] MEDS ORDERED: Naloxone 0.4 MG/ML INJ IVP PRN (20:59)
[2017-09-08] MEDS ORDERED: Ringers Solution, Lactated 1,000 ML IVC SCH (21:00)
--- NOTE | 2017-09-08 21:10 | Internal Med History&Physical ---
Date of Encounter: 09/08/17 Time of Encounter: 21:03 Assessment and Plan (1) Anorexia Current visit: Yes Status: Acute unable to tolerated PO intake Attempt clears Admit for symptoms control with IV anti-emetic and symptom control (2) Nausea vomiting and diarrhea Current visit: No Status: Acute IV anti-emetic (3) Metastatic breast cancer Current visit: Yes Status: Acute follows with Dr Barragan at [facility] (4) Chronic pain due to neoplasm Current visit: Yes Status: Acute on chronic narcs (5) Leucopenia Current visit: No Status: Acute likely 2/2 to oral CDKi Qualifiers: Leukopenia type: unspecified Qualified Code(s): D72.819 - Decreased white blood cell count, unspecified Internal Medicine - H&P: HPI Chief complaint: Anorexia, intractable N/V History of present illness: Ms. Donahue is a 37 year old female with metastatic ER+ breast cancer who presents with anorexia, intractable N/V. The patient is a 37-year-old who presents with 5 day history of acute on chronic nausea of vomiting resulting in absolute anorexia. Emesis consisted of bilious, nonbloody character. As a result of her upper GI symptoms she has not been able to tolerate by mouth intake. On review she reports recent history of profuse diarrhea 3-4 days ago, up to 10-20x daily which has improved - she reported this to be 2/2 her new oral chemo abemaciclib as mentioned by her oncologist. In regards to her history she has a history of metastatic cancer being seen by Dr. Monsivais at [facility]. Her family reported progression on ibrance/ faslodex and has been recently switched to abemaciclib where she has only been taking for 3 days now. She has metastatic disease reported by patient to her spine causing chronic pain and liver. EKG personally reviewed with rate of 146, sinus tachycardia CT/CT head/brain wo con IMPRESSION: No acute intracranial abnormality. CT/CT abd pelvis wo no iv no oral IMPRESSION: Findings suspicious for osseous metastatic disease involving T10, L3 and S1. Consider bone scan for further evaluation. Interval decrease in size of the right hepatic lobe metastatic lesion which now measures 2.7 cm. Unchanged 3 mm nodule in the left lung base. Past Med Surg Social Fam HX - Past Medical History Medical history: cancer, kidney stones Psychiatric history: no psych history - Past Surgical History Surgical History: breast surgery, cancer surgery, cholecystectomy, hysterectomy - Social History Smoking Status: Former smoker Smokeless Tobacco Status: No Alcohol use: none Drug use: none - Family History Mother Adopted: No Living Status: Still Living Hx Family Cardiac Disorders: Yes Hx Family Endocrine Disorder: Yes (DM) Internal Medicine - H&P: Meds Esomeprazole Magnesium [Nexium] 40 mg PO DAILY #30 capsule.dr 12/16/15 [Rx] Sennosides/Docusate Sodium [Senna Plus] 1 each PO BID PRN #60 tablet 07/16/16 [ Rx] LORazepam [Ativan] 0.5 mg PO TID PRN 09/23/16 [History] Lidocaine/Prilocaine CREAM [Emla] 1 appl TP AD #1 tube 09/28/16 [Rx] Sorbitol Soln [Sorbitol] 15 - 30 ml PO DAILY PRN #1 solution 09/28/16 [Rx] OLANZapine [Zyprexa Zydis] 10 mg PO HS #20 tab.rapdis 10/22/16 [Rx] SUMAtriptan Succinate [Imitrex] 100 mg PO AD PRN #12 tablet 10/27/16 [Rx] Zolpidem [Ambien] 10 mg PO HS PRN #30 tablet 11/03/16 [Rx] Promethazine [Phenergan] 25 mg PO Q6HR PRN #60 tablet 11/24/16 [Rx] Oxycodone HCl [Roxicodone 30 MG Immed Release] 30 mg PO Q4HR PRN #150 tab [Rx] Sucralfate [Carafate] 1 gm PO QIDAC 03/05/17 [History] Ondansetron [Zofran] 8 mg PO Q8HR PRN #60 tablet 03/09/17 [Rx] Abemaciclib [Verzenio] 200 mg PO AD 09/08/17 [History] Cyclobenzaprine [Flexeril] 10 mg PO TID PRN 09/08/17 [History] Dronabinol [Marinol] 10 mg PO TIDWM 09/08/17 [History] Duloxetine HCl [Cymbalta] 60 mg PO HS 09/08/17 [History] Gabapentin [Neurontin] 300 mg PO TID 09/08/17 [History] Morphine Sulfate [Ginny] 60 mg PO Q12H 09/08/17 [History] SUMAtriptan succinate [Imitrex] 6 mg SQ ONCE PRN 09/08/17 [History] 3 Allergy/AdvReac Type Severity Reaction Status Date / Time metoclopramide [From Reglan] Allergy See Verified 09/08/17 15:06 Comments denosumab [From Xgeva] AdvReac Anaphylaxis Verified 09/08/17 15:06 All Systems PM: A 10-system review of systems was performed and is negative for pertinent findings except as documented above in the HPI. Review of systems: ROS 14 point review of systems reviewed as best as possible given presentation. Pertinent positive or negative as per HPI or otherwise reviewed as negative - Constitutional Vitals: Temp Pulse Resp BP Pulse Ox 98.1 F 63 15 113/79 96 09/08/17 20:17 09/08/17 20:17 09/08/17 20:17 09/08/17 20:17 09/08/17 20:17 Exam: General - AAO x 3 Psych - Appropriate affect/speech. No agitation Eyes - NADJA. Eye lids intact. No scleral icterus Heart - Sinus. RRR. S1 and S2 present. No added HS/murmurs appreciated. No elevated JVD appreciated. Lung - Adequate air entry b/l, No crackles/wheezes appreciated GI - Soft, non-tender. No hepatosplenomegaly/ascites. BS+ - No CVA/suprapubic tenderness or palpable bladder distension Skin - Intact. No rash/petechiae/ecchymosis. Warm extremities Internal Med - H&P Results - Labs CBC & Chem 7: 09/08/17 15:35 09/08/17 15:35
[2017-09-08] MEDS: Sucralfate 1 GM TABLET PO SCH (21:33)
[2017-09-08] MEDS: OLANZapine 10 MG TAB.RAPDIS PO SCH (21:33)
[2017-09-08] MEDS: *HR* Promethazine 25 MG/ML VIAL IVP PRN (21:33)
[2017-09-08] MEDS: Gabapentin 300 MG CAPSULE PO SCH (21:33)
[2017-09-08] MEDS: *HR* Morphine 2 MG/ML SYRINGE IVP PRN (21:33)
[2017-09-08] MEDS: *HR* Morphine Sulfate SR (12 HR) 30 MG TABLET.ER PO SCH (22:06)
[2017-09-09] MEDS: *HR* Morphine 2 MG/ML SYRINGE IVP PRN (01:52)
[2017-09-09] MEDS: Ondansetron 4 MG/2 ML VIAL IVP PRN ×2 (01:52→12:08)
[2017-09-09] MEDS ORDERED: 0.9 % Sodium Chloride 1,000 ML IVC ONE (04:40)
[2017-09-09 06:03] LABS: BUN/Creatinine Ratio 17 (6-26); Blood Urea Nitrogen 11 mg/dL (7-20); Carbon Dioxide 22 mEq/L (19-29); Chloride 114 mEq/L (98-109); Glucose 84 mg/dL (70-99); Osmolality,Calculated 291 (280-300); Potassium 3.7 mEq/L (3.5-4.5); Sodium 141 mEq/L (136-145); eGFR For African Americans > 60 (> 60); eGFR For Non-African Americans > 60 (> 60)
[2017-09-09 06:05] LABS: Calcium 7.5 mg/dL (8.6-10.8)
[2017-09-09] MEDS: *HR* Enoxaparin 40 MG/0.4 ML SYRINGE SQ SCH (06:18)
[2017-09-09] MEDS: *HR* Morphine Sulfate SR (12 HR) 30 MG TABLET.ER PO SCH ×2 (09:04→21:58)
[2017-09-09] MEDS: Gabapentin 300 MG CAPSULE PO SCH ×3 (09:04→22:01)
[2017-09-09] MEDS: Sucralfate 1 GM TABLET PO SCH ×4 (09:05→23:47)
[2017-09-09] MEDS: D5% in 0.45% NACL 1,000 ML IVC SCH ×2 (09:08→23:47)
[2017-09-09] MEDS ORDERED: GI Cocktail 40 ML EACH PO ONE (09:48)
[2017-09-09] MEDS: *HR* HYDROmorphone 2 MG/ML SYRINGE IVP PRN (11:29)
--- NOTE | 2017-09-09 15:55 | Internal Med Progress Note ---
Date of Encounter: 09/09/17 Time of Encounter: 09:55 - Assessment and plan (1) Abdominal pain Current Visit: Yes Status: Acute Assessment and plan: Could be from gastritis given the burning sensation that she describes. On Prilosec and Carafate. Qualifiers: Abdominal location: epigastric Qualified Code(s): R10.9 - Unspecified abdominal pain (2) Intractable nausea and vomiting Current Visit: Yes Status: Acute Assessment and plan: Intractable nausea and vomiting. Due to recent chemotherapy. Regimen changes. Continue symptomatic care with Zofran and Phenergan. IV hydration. Qualifiers: Vomiting type: cyclical vomiting Qualified Code(s): G43.A1 - Cyclical vomiting, intractable (3) Anorexia Current Visit: Yes Status: Acute Assessment and plan: With intractable nausea and vomiting. Likely due to her new chemotherapy regimen with abemaciclib. Continue symptomatic treatment. On Marinol. If patient's symptoms improve, we will start her on clear liquid diet. (4) Chronic pain due to neoplasm Current Visit: Yes Status: Acute Assessment and plan: Acute on chronic pain with recent reported spinal fracture. Will treat with intravenous narcotic medications. High-risk for complications. (5) Leucopenia Current Visit: Yes Status: Chronic Assessment and plan: Due to chemotherapy. Qualifiers: Leukopenia type: unspecified Qualified Code(s): D72.819 - Decreased white blood cell count, unspecified (6) Metastatic breast cancer Current Visit: Yes Status: Acute Assessment and plan: Continue follow-up with oncology after discharge (7) Nausea vomiting and diarrhea Current Visit: Yes Status: Acute Assessment and plan: Symptomatic treatment. - Subjective Interval history: Continues to have severe back pain at site of her vertebral fracture. Nausea improving. Also has burning epigastric abdominal pain radiating into her chest. Remains nothing by mouth at this time. No fever or chills reported overnight. - Constitutional Vitals: Temp Pulse Resp BP Pulse Ox 98.3 F 80 17 93/59 93 09/09/17 07:49 09/09/17 07:49 09/09/17 07:49 09/09/17 07:49 09/09/17 07:49 General appearance: Present: cooperative, A&O X 3, answers questions appropriately - Neck Neck exam general surgery: Present: supple, trachea midline. Absent: lymphadenopathy - Respiratory Respiratory exam: Present: CTAB. Absent: accessory muscle use, rales, rhonchi, wheezes - Cardiovascular Cardiovascular exam: Present: RRR, +S1, +S2. Absent: diastolic murmur, gallop, rubs, systolic murmur - GI/Abdominal GI/Abdominal exam: Present: normal bowel sounds, soft, no peritoneal signs. Absent: distended, tenderness - Extremities Exam Extremities exam: Present: warm, radial pulses palpable and symmetrical. Absent : calf tenderness, cyanotic, pedal edema Internal Medicine: Result - Labs CBC & Chem 7: 09/08/17 15:35 09/09/17 05:26 Labs: BMP 09/09/17 05:26 Sodium 141 Potassium 3.7 Chloride 114 H Carbon Dioxide 22 BUN 11 Creatinine 0.63 Glucose 84 Calcium 7.5 L D - ABG Interpretation ABG results: PT/INR, D-dimer PT 12.6 Seconds (9.4-12.1) H 09/08/17 15:35 Consult Discharge Plan - Plan Referrals: NONE,PCP [Primary Care Provider] -
[2017-09-09] MEDS: *HR* OxyCODONE Immed Rel 15 MG TABLET PO PRN (16:20)
[2017-09-09] MEDS ORDERED: 0.9 % Sodium Chloride 500 ML IVC ONE (19:02)
[2017-09-09] MEDS: OLANZapine 10 MG TAB.RAPDIS PO SCH (23:47)
[2017-09-10 05:34] LABS: BUN/Creatinine Ratio 4 (6-26); Calcium 7.8 mg/dL (8.6-10.8); Carbon Dioxide 24 mEq/L (19-29); Chloride 115 mEq/L (98-109); Glucose 121 mg/dL (70-99); Osmolality,Calculated 296 (280-300); Potassium 3.4 mEq/L (3.5-4.5); Sodium 144 mEq/L (136-145); eGFR For African Americans > 60 (> 60); eGFR For Non-African Americans > 60 (> 60)
[2017-09-10 05:35] LABS: Blood Urea Nitrogen 3 mg/dL (7-20)
[2017-09-10] MEDS: *HR* Enoxaparin 40 MG/0.4 ML SYRINGE SQ SCH (05:45)
[2017-09-10] MEDS: *HR* HYDROmorphone 2 MG/ML SYRINGE IVP PRN ×2 (06:30→12:14)
[2017-09-10] MEDS: Sucralfate 1 GM TABLET PO SCH ×4 (07:54→21:27)
[2017-09-10] MEDS: Gabapentin 300 MG CAPSULE PO SCH ×3 (07:55→20:08)
[2017-09-10] MEDS: *HR* Morphine Sulfate SR (12 HR) 30 MG TABLET.ER PO SCH ×2 (08:48→21:26)
[2017-09-10] MEDS: Ondansetron 4 MG/2 ML VIAL IVP PRN ×2 (08:54→20:08)
[2017-09-10] MEDS: *HR* Promethazine 25 MG/ML VIAL IVP PRN (12:13)
[2017-09-10] MEDS: D5% in 0.45% NACL 1,000 ML IVC SCH (12:19)
[2017-09-10] MEDS ORDERED: *HR* HYDROmorphone 2 MG/ML SYRINGE IVP PRN (13:21)
--- NOTE | 2017-09-10 15:52 | Internal Med Progress Note ---
Date of Encounter: 09/10/17 Time of Encounter: 11:40 - Assessment and plan (1) Abdominal pain Current Visit: Yes Status: Acute Assessment and plan: Improving. Likely from gastritis. Continue PPI. Responded well to a GI cocktail. We will advance diet as tolerated. Qualifiers: Abdominal location: epigastric Qualified Code(s): R10.9 - Unspecified abdominal pain (2) Intractable nausea and vomiting Current Visit: Yes Status: Resolved Assessment and plan: Improving. Symptoms controlled with antibiotics. We will continue as needed Qualifiers: Vomiting type: cyclical vomiting Qualified Code(s): G43.A1 - Cyclical vomiting, intractable (3) Anorexia Current Visit: Yes Status: Acute Assessment and plan: Patient able to tolerate clear liquid diet at this time. We will advance diet as tolerated (4) Chronic pain due to neoplasm Current Visit: Yes Status: Acute Assessment and plan: Acute on chronic pain. Continue intravenous Dilaudid but will decrease frequency. Patient was barely able to stay awake during my evaluation today. High-risk for complications. (5) Leucopenia Current Visit: Yes Status: Chronic Qualifiers: Leukopenia type: unspecified Qualified Code(s): D72.819 - Decreased white blood cell count, unspecified (6) Metastatic breast cancer Current Visit: Yes Status: Acute Assessment and plan: Follow-up outpatient with oncology. (7) Nausea vomiting and diarrhea Current Visit: Yes Status: Acute Assessment and plan: Likely due to new chemotherapy regimen. Treat symptomatically as above - Subjective Interval history: Patient continues to have severe back pain. Her abdominal pain is improving. She does not have burning epigastric pain anymore. She is able to tolerate clear liquid diet well. She denies any fever or chills. Her nausea is currently well controlled with antiemetic medications that she is receiving. - Constitutional Vitals: Temp Pulse Resp BP Pulse Ox 98.4 F 95 18 92/59 93 09/10/17 11:33 09/10/17 11:33 09/10/17 11:33 09/10/17 11:33 09/10/17 11:33 General appearance: Present: cooperative, mild distress, A&O X 3, answers questions appropriately - Neck Neck exam general surgery: Present: supple, trachea midline. Absent: lymphadenopathy - Respiratory Respiratory exam: Present: CTAB. Absent: accessory muscle use, rales, rhonchi, wheezes - Cardiovascular Cardiovascular exam: Present: RRR, +S1, +S2. Absent: diastolic murmur, gallop, rubs, systolic murmur - GI/Abdominal GI/Abdominal exam: Present: normal bowel sounds, soft, no peritoneal signs. Absent: distended, tenderness - Extremities Exam Extremities exam: Present: warm, radial pulses palpable and symmetrical. Absent : calf tenderness, cyanotic, pedal edema - Neurological Exam Neurological exam: Present: CN II-XII intact, oriented X3, no focal deficits. Absent: facial droop, speech deficit Internal Medicine: Result - Labs CBC & Chem 7: 09/08/17 15:35 09/10/17 04:30 Labs: BMP 09/10/17 04:30 Sodium 144 Potassium 3.4 L Chloride 115 H Carbon Dioxide 24 BUN 3 L Creatinine 0.68 Glucose 121 H Calcium 7.8 L - ABG Interpretation ABG results: PT/INR, D-dimer PT 12.6 Seconds (9.4-12.1) H 09/08/17 15:35 - VTE Documentation of Mechanical Device: Intermittent pneumatic compression device Consult Discharge Plan - Plan Referrals: NONE,PCP [Primary Care Provider] -
[2017-09-10] MEDS: OLANZapine 10 MG TAB.RAPDIS PO SCH (20:08)
[2017-09-10] MEDS ORDERED: 0.9 % Sodium Chloride 1,000 ML IVC ONE (20:26)
[2017-09-11] MEDS: *HR* OxyCODONE Immed Rel 15 MG TABLET PO PRN ×2 (03:28→10:08)
[2017-09-11 04:00] LABS: Basophils % 0.8 %; Eosinophils # 0.1 K/mcL (0.0-0.6); Eosinophils % 5.2 %; Hematocrit 30.7 % (35.3-44.9); Immature Granulocytes % 0.4 % (0-4); Lymphocytes # 1.1 K/mcL (0.6-4.6); Lymphocytes % 44.6 %; Mean Corpuscular HGB Conc 32.9 g/dL (31.6-35.5); Mean Corpuscular Hemoglobin 31.9 pg (28.0-33.3); Mean Platelet Volume 10.3 fL (9.4-12.4); Monocytes # 0.4 K/mcL (0.0-1.3); Monocytes % 13.9 %; Neutrophils # 0.9 K/mcL (1.6-8.9); Platelet Count 109 K/mcL (140-400); Red Blood Count 3.17 M/mcL (3.82-4.97); Red Cell Distribution Width 13.8 % (11.5-14.5); Segmented Neutrophils % 35.1 %
[2017-09-11 04:08] LABS: Hemoglobin 10.1 g/dL (11.5-15.4); Mean Corpuscular Volume 96.8 fL (83.0-100.0)
[2017-09-11 04:16] LABS: BUN/Creatinine Ratio 4 (6-26); Carbon Dioxide 24 mEq/L (19-29); Chloride 115 mEq/L (98-109); Glucose 113 mg/dL (70-99); Osmolality,Calculated 299 (280-300); Potassium 3.9 mEq/L (3.5-4.5); Sodium 146 mEq/L (136-145); eGFR For African Americans > 60 (> 60); eGFR For Non-African Americans > 60 (> 60)
[2017-09-11 04:24] LABS: Blood Urea Nitrogen 3 mg/dL (7-20)
[2017-09-11] MEDS: *HR* Enoxaparin 40 MG/0.4 ML SYRINGE SQ SCH (05:47)
[2017-09-11] MEDS: *HR* Promethazine 25 MG/ML VIAL IVP PRN (05:49)
[2017-09-11] MEDS: Sucralfate 1 GM TABLET PO SCH (08:15)
[2017-09-11] MEDS: *HR* Morphine Sulfate SR (12 HR) 30 MG TABLET.ER PO SCH (08:15)
[2017-09-11] MEDS: Gabapentin 300 MG CAPSULE PO SCH (08:15)
--- NOTE | 2017-09-11 10:43 | Discharge Summary ---
Date of Encounter: 09/11/17 Time of Encounter: 10:15 - Discharge Diagnosis (1) Abdominal pain Priority: Primary Status: Acute Qualifiers: Abdominal location: epigastric Qualified Code(s): R10.13 - Epigastric pain (2) Intractable nausea and vomiting Priority: Secondary Status: Resolved Qualifiers: Vomiting type: cyclical vomiting Qualified Code(s): G43.A1 - Cyclical vomiting, intractable (3) Anorexia Priority: Secondary Status: Acute (4) Chronic pain due to neoplasm Priority: Secondary Status: Acute (5) Leucopenia Priority: Secondary Status: Chronic Qualifiers: Leukopenia type: unspecified Qualified Code(s): D72.819 - Decreased white blood cell count, unspecified (6) Metastatic breast cancer Priority: Secondary Status: Acute (7) Nausea vomiting and diarrhea Priority: Secondary Status: Acute - Discharge Medications Prescriptions: Dronabinol [Marinol] 10 mg PO TIDWM #90 capsule Lidocaine [Lidoderm] 1 each TP DAILY #30 adh..patch Home Medications: Esomeprazole Magnesium [Nexium] 40 mg PO DAILY #30 capsule. 12/16/15 [Rx] Sennosides/Docusate Sodium [Senna Plus] 1 each PO BID PRN #60 tablet 07/16/16 [ Rx] LORazepam [Ativan] 0.5 mg PO TID PRN 09/23/16 [History] Lidocaine/Prilocaine CREAM [Emla] 1 appl TP AD #1 tube 09/28/16 [Rx] Sorbitol Soln [Sorbitol] 15 - 30 ml PO DAILY PRN #1 solution 09/28/16 [Rx] OLANZapine [Zyprexa Zydis] 10 mg PO HS #20 tab.rapdis 10/22/16 [Rx] SUMAtriptan Succinate [Imitrex] 100 mg PO AD PRN #12 tablet 10/27/16 [Rx] Zolpidem [Ambien] 10 mg PO HS PRN #30 tablet 11/03/16 [Rx] Promethazine [Phenergan] 25 mg PO Q6HR PRN #60 tablet 11/24/16 [Rx] Oxycodone HCl [Roxicodone 30 MG Immed Release] 30 mg PO Q4HR PRN #150 tab [Rx] Sucralfate [Carafate] 1 gm PO QIDAC 03/05/17 [History] Ondansetron [Zofran] 8 mg PO Q8HR PRN #60 tablet 03/09/17 [Rx] Abemaciclib [Verzenio] 200 mg PO AD 09/08/17 [History] Cyclobenzaprine [Flexeril] 10 mg PO TID PRN 09/08/17 [History] Duloxetine HCl [Cymbalta] 60 mg PO HS 09/08/17 [History] Gabapentin [Neurontin] 300 mg PO TID 09/08/17 [History] Morphine Sulfate [Ginny] 60 mg PO Q12H 09/08/17 [History] SUMAtriptan succinate [Imitrex] 6 mg SQ ONCE PRN 09/08/17 [History] Dronabinol [Marinol] 10 mg PO TIDWM #90 capsule 09/11/17 [Rx] Lidocaine [Lidoderm] 1 each TP DAILY #30 adh..patch 09/11/17 [Rx] Allergies/Adverse Reactions: 3 Allergy/AdvReac Type Severity Reaction Status Date / Time metoclopramide [From Reglan] Allergy See Verified 09/08/17 15:06 Comments denosumab [From Xgeva] AdvReac Anaphylaxis Verified 09/08/17 15:06 Date of admission: 09/09/17 16:00 Primary care physician: PCP NONE Consults: 09/08/17 21:52 Consult to Nutrition [CONS] Routine Comment: Consulting Provider: NUTRITION Reason for Dietary Consult: MST Score Discharging clinician: Janae Wilson Anticipated date of discharge: 09/11/17 - Patient Status Disposition: Home, Self-Care Condition: Good Functional capacity at discharge: independent ambulation Overall status at discharge: patient is progressing back to baseline - Discharge Instructions Instructions: Chronic Pain (DC) Follow Up With: NONE,PCP [Primary Care Provider] - (Follow up with PCP in 1 week) Additional Instructions: Follow up with oncology regarding your chemotherapy - Diet and Activity Activity: increase activity as tolerated Diet: advance to your usual diet, low fat, low cholesterol, low salt diet Hospital course: Ms. Donahue is a 37 year old female patient with history of breast cancer who presented to the ER with complaints of intractable nausea and vomiting along with anorexia. She had also been having profuse diarrhea prior to presentation which had slowly improved by the time she came to the ER. She will be had recently been started on new oral chemotherapy agent abemaciclib and attribute her symptoms to this. She was also having acute worsening of intractable back pain related to her prior spinal fracture. She was started on treatment with intravenous antiemetics and narcotics. She also described burning epigastric pain. She was placed on PPI. Her symptoms slowly improved with this treatment regimen and I will today she is able to tolerate oral diet well. She continues to have pain in her back but it is controlled with oral narcotic agents. Clinically she is stable to be discharged home. She will follow up with her oncologist for further management. Patient does take Marinol at home for anorexia. This medication will be prescribed for the patient till she sees her oncologist. - Time Spent with Patient Total time spent providing and/or coordinating discharge services: Greater than 30 minutes (32 min) - Constitutional Vitals: Temp Pulse Resp BP Pulse Ox 98.4 F 72 16 107/70 96 09/11/17 07:29 09/11/17 07:29 09/11/17 07:29 09/11/17 07:29 09/11/17 07:29 General appearance: Present: cooperative, A&O X 3, pleasant, no acute distress, answers questions appropriately - Neck Neck exam general surgery: Present: supple, trachea midline. Absent: lymphadenopathy - Respiratory Respiratory exam: Present: CTAB. Absent: accessory muscle use, rales, rhonchi, wheezes - Cardiovascular Cardiovascular exam: Present: RRR, +S1, +S2. Absent: diastolic murmur, gallop, rubs, systolic murmur - GI/Abdominal GI/Abdominal exam: Present: normal bowel sounds, soft, no peritoneal signs. Absent: distended, tenderness - VTE Documentation of Mechanical Device: Intermittent pneumatic compression device
[2017-09-11 11:24] VITALS: BP 101/66
--- NOTE | 2017-09-11 11:27 | Electrocardiograph Report ---
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
== END 2017-09-11 12:26 | disposition home or self-care (01) | DRG 251 ==
LOC: 3ANU 14:58 → EMEROO 14:58 → 3ANU 18:49
PROVIDERS: ADMIT Hospitalist; ATTEND Internal Medicine